=== PATIENT | female | born 1935 | race Caucasian/White ===

== ENCOUNTER 2017-08-16 20:46 | Emergency (ER) | payer OTHER ==
[~2017-08-16] VITALS: Ht 165.1 cm; Wt 81.6 kg
--- OUTSIDE RECORDS SUMMARY | 2017-08-16 20:49 | XMS REPORT | Clinical Summary ---
Author Author [facility] Address Unknown Phone Unavailable Care Team Providers [employer] Principal Name Role Phone PCP Unavailable Allergies No Known Allergies Current Medications Prescription Sig. Disp. Refills Start End Date Status Date apixaban (ELIQUIS) 5 mg Take 1 tablet (5 mg 0 03/31/20 Active Tab tablet total) by mouth 2 (two) 17 times daily. levothyroxine (SYNTHROID, Take 1 tablet (125 mcg 30 tablet 0 04/01/20 04/01/20 Active LEVOTHROID) 125 MCG total) by mouth Every 17 18 tablet morning on an empty stomach. losartan (COZAAR) 25 MG Take 1 tablet (25 mg 0 04/01/20 04/01/20 Active tablet total) by mouth daily. 17 18 sertraline (ZOLOFT) 100 Take 1 tablet (100 mg 30 tablet 0 04/01/20 04/01/20 Active MG tablet total) by mouth daily. 17 18 amiodarone (PACERONE) 200 Take 1 tablet (200 mg 0 04/01/20 04/01/20 Active MG tablet total) by mouth daily. 17 18 metoprolol (TOPROL-XL) 50 Take 1 tablet (50 mg 180 tablet 3 03/31/20 03/31/20 Active MG 24 hr tablet total) by mouth 2 (two) 17 18 times daily. metoprolol (TOPROL-XL) 50 Take 1 tablet (50 mg 0 03/31/20 03/31/20 Discontin MG 24 hr tablet total) by mouth 2 (two) 17 17 ued times daily. amiodarone (PACERONE) 100 Take 1 tablet (100 mg 0 03/31/20 03/31/20 Discontin MG tablet total) by mouth every 17 17 ued other day. Active Problems Problem Noted Date Pacemaker 03/28/2017 A-fib (HCC) 03/28/2017 Encounters Date Type Specialty Care Team Description 05/11/2017 Hospital Erick Landers MD Atrial fibrillation, Encounter unspecified type (HCC) 05/11/2017 Outside Orders Erick Landers MD Atrial fibrillation, unspecified type (HCC) (Primary Dx) 03/29/2017 Anesthesia Santos Linder AA Event 03/29/2017 Procedure Pass 03/29/2017 Surgery Erick Landers MD PACEMAKER GEN & LEADS - INSERTION W/ MAC ANESTHESIA (SING/DUAL/MULT) 03/28/2017 [facility] Marti Zimmerman Pacemaker (Primary - Encounter MD Maru Dx);Atrial fibrillation, 03/31/2017 unspecified type (HCC) 03/28/2017 Orders Only Internal Medicine Marti Zimmerman MD 11/09/2016 [facility] Erick Landers MD Paroxysmal Encounter supraventricular tachycardia (HCC) 11/08/2016 Outside Orders Central Scheduling Erick Landers MD Paroxysmal supraventricular tachycardia (HCC) (Primary Dx) after 08/15/2016 Social History Tobacco Use Types Packs/Day Years Used Date Never Smoker Alcohol Use Drinks/Week oz/Week Comments No Sex Assigned at Date Recorded Not on file Last Filed Vital Signs Vital Sign Reading Time Taken Blood Pressure 135/76 03/31/2017 7:00 AM [employer] Pulse 70 03/31/2017 7:00 AM [employer] Temperature 36.6 C (97.9 F) 03/31/2017 7:00 AM [employer] Respiratory Rate 18 03/31/2017 7:00 AM [employer] Oxygen Saturation 91% 03/31/2017 7:00 AM [employer] Inhaled Oxygen - - Concentration Weight 82.6 kg (182 lb 1.6 oz) 03/31/2017 7:00 AM [employer] Height 167.6 cm (5' 6") 03/28/2017 3:00 PM [employer] Body Mass Index 29.39 03/31/2017 7:00 AM [employer] Plan of Treatment Not on file Implants Implanted Type Area Customer Support Agent Device Expiration Model / Identifier Date Serial / Lot Lead Pacemkr Capsur Novus [id number] Pacemaker N/A: Heart [employer]:CARD [id number] / [id number] - [id number] Lead RHY:DISEASE MGT / Implanted: Qty: 1 on 03/29/2017 by Erick Landers MD Lead Pacemkr Capsur Novus 58cm Pacemaker Heart [employer]:CARD 2018 [id number] / [id number] - [id number] Lead RHY:DISEASE MGT [id number] Implanted: Qty: 1 on 03/29/2017 by / Erick Landers MD Pacemaker Ipg Advisa [id number] - Pacemakers N/A: Chest [employer]:CARD [id number] / [id number] RHY:DISEASE MGT [id number] Implanted: Qty: 1 on 03/29/2017 by / Erick Landers MD Procedures Procedure Name Priority Date/Time Associated Diagnosis Comments PACEMAKER GEN & LEADS - 03/29/2017 Chest pain INSERTION W/ MAC 6:09 PM [employer] ANESTHESIA (SING/DUAL/MULT) after 08/15/2016 Results * ARRYTHMIA IMPLANT REPORT - SCAN (07/06/2017 1:50 PM) Only the most recent of 3 results within the time period is included. * XR Chest 2 Views (05/11/2017 4:20 PM) Specimen Performing Laboratory [facility] Narrative FINAL REPORT TECHNIQUE: Frontal and lateral views of the chest. INDICATION: 82-year-old woman with pacemaker implant and atrial fibrillation. COMPARISON: Chest radiograph 03/30/2017. FINDINGS: LINES/TUBES: Unchanged implanted cardiac device in the soft tissues of the anterior left chest with intact leads. Unchanged event recorder also in the soft tissues of the anterior left chest. LUNGS: Streaky atelectasis in the right lower lung zone. The lungs are otherwise well inflated and clear. PLEURA: No pleural effusion or pneumothorax. HEART AND MEDIASTINUM: The cardiomediastinal silhouette is mildly enlarged. Ectatic/tortuous thoracic aorta. SOFT TISSUES AND BONES: Degenerative changes of the visualized spine. 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 IMPRESSION: No acute cardiopulmonary abnormalities. Signed: Audrey Garnica MD Report Verified Date/Time:05/11/2017 16:36:59 Reading Location: [address] Radiology Reading Room Procedure Note Interface, External Ris In - 05/11/2017 4:39 PM [employer] FINAL REPORT TECHNIQUE: Frontal and lateral views of the chest. INDICATION: 82-year-old woman with pacemaker implant and atrial fibrillation. COMPARISON: Chest radiograph 03/30/2017. FINDINGS: LINES/TUBES: Unchanged implanted cardiac device in the soft tissues of the anterior left chest with intact leads. Unchanged event recorder also in the soft tissues of the anterior left chest. LUNGS: Streaky atelectasis in the right lower lung zone. The lungs are otherwise well inflated and clear. PLEURA: No pleural effusion or pneumothorax. HEART AND MEDIASTINUM: The cardiomediastinal silhouette is mildly enlarged. Ectatic/tortuous thoracic aorta. SOFT TISSUES AND BONES: Degenerative changes of the visualized spine. 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 IMPRESSION: No acute cardiopulmonary abnormalities. Signed: Audrey Garnica MD Report Verified Date/Time: 05/11/2017 16:36:59 Reading Location: [address] Radiology Reading Room * RHYTHM STRIP - SCAN (04/11/2017 12:50 PM) Only the most recent of 2 results within the time period is included. * CARDIAC CATH REPORT - SCAN (03/31/2017 8:10 PM) * ECHOCARDIOGRAM REPORT - SCAN (03/31/2017 7:20 AM) * XR chest 1 view portable / bedside (03/30/2017 10:40 PM) Specimen Performing Laboratory [facility] Narrative FINAL REPORT History: Pacemaker placement. Comparison: None. Findings: A single view of the chest is submitted. The patient is rotated to the right. A left subclavian, dual-lead pacemaker is in place. The leads terminate over the expected positions of the right atrium and right ventricle without associated pneumothorax or hematoma. The cardiac silhouette is within normal limits for size. There is no focal consolidation, large pleural effusion or evidence of overt pulmonary edema. An implanted electronic device overlies the left lower chest. There is no acute bony abnormality. Signed: Xavier Miranda MD Report Verified Date/Time:03/30/2017 22:44:16 Reading Location: [address] [place] Reading Room Procedure Note Interface, External Ris In - 03/30/2017 10:46 PM [employer] FINAL REPORT History: Pacemaker placement. Comparison: None. Findings: A single view of the chest is submitted. The patient is rotated to the right. A left subclavian, dual-lead pacemaker is in place. The leads terminate over the expected positions of the right atrium and right ventricle without associated pneumothorax or hematoma. The cardiac silhouette is within normal limits for size. There is no focal consolidation, large pleural effusion or evidence of overt pulmonary edema. An implanted electronic device overlies the left lower chest. There is no acute bony abnormality. Signed: Xavier Miranda MD Report Verified Date/Time: 03/30/2017 22:44:16 Reading Location: [address] Reading Room * ECG 12 lead (03/30/2017 3:44 PM) Specimen Performing Laboratory [email or web address] Narrative Ventricular Rate 92 BPM Atrial Rate 416 BPM QRS Duration 76 ms Q-T Interval 388 ms QTC Calculation(Bazett) 479 ms R [place] 49 degrees T [place] 224 degrees Atypical flutter/fibrillation with variable AV block with an occasional paced ventricular beat. LVH with repolarization abnormality Abnormal ECG No previous ECGs available Confirmed by Chapis WILCOX MICHAEL ([id number]) on 03/31/2017 9:37:12 AM Procedure Note Interface, External Ris In - 03/31/2017 9:37 AM [employer] Ventricular Rate 92 BPM Atrial Rate 416 BPM QRS Duration 76 ms Q-T Interval 388 ms QTC Calculation(Bazett) 479 ms R [place] 49 degrees T [place] 224 degrees Atypical flutter/fibrillation with variable AV block with an occasional paced ventricular beat. LVH with repolarization abnormality Abnormal ECG No previous ECGs available Confirmed by Chapis WILCOX MICHAEL ([id number]) on 03/31/2017 9:37:12 AM * Transesophageal echo (03/30/2017 3:37 PM) Component Value Ref Range Ejection Fraction Specimen Performing Laboratory [facility] ECHO [facility]ART[facility] MKCKESSON CPACS Narrative Transesophageal Echocardiography Report (BETSY) Demographics Patient Name Mark VILLEDA of Study 03/30/2017 SHWETA [id number] Female Visit Number [id number] Unknown [id number] Room Number 1450 Number Date of Birth1935Referring Physician Anshul Suarez MD Age82 year(s)Physical Medicine Physician Ida Lombardo Interpreting Olimpia Turner Physician Fellow EDDIE Schumacher Procedure Type of Study BETSY procedure:TRANSESOPHAGEAL ECHO (Routine) Indications:Sustained or non sustained Afib, SVT or VT. Clinical History AFIB, HTN, Thyroid Disease, Hypothyroidism, PPM Height: 66 inches Weight: 82.1 kg (181 lbs) BSA: 1.92 m^2 BMI: 29.21 kg/m^2 HR: 83 bpm BP: 177/88 mmHg BETSY Performed By: the attending and the fellow Procedure Medications - Fentanyl 50 mcg. - Midazolam 2 mg. Signature Findings Rhythm/BPAtrial fibrillation with rapid ventricular response. Left Ventricle Normal left ventricular chamber size. Normal wall thickness. Normal overall left ventricular systolic function. No apparent segmental wall motion abnormalities. Left AtriumLA is enlarged but severity assessment is unreliable due to know BETSY sector size limitation. LA appendage spontaneous echo contrast is mild . LA appendage thrombus is not present . LA appendage velocities are normal range (>40 cm/s) . Right VentricleThe right ventricular chamber size and systolic function are within normal limits. Right Atrium RA size is mildly dilated. RA pacing wire is visualized. Atrial SeptumIV saline contrast injection was negative for a PFO (patent foramen ovale) at rest . Aortic Valve Mild AoV cusp calcification. Mild AoV cusp thickening. AoV cusp mobility is normal . No evidence of aortic regurgitation. Mitral Valve Mild MV leaflet thickening. Trace mitral regurgitation. Tricuspid ValveTV structure is normal. Mild tricuspid regurgitation. Estimated peak systolic PA pressure is 45-50 mmHg + RA pressure. Pulmonic Valve Normal PV structure and function by limited views and Doppler. AortaGrade 2 plaque (extensive intimal thickening) in the descending thoracic aorta . PericardiumA small anterior pericardial effusion is present . IVC/SVC/PA/PV/PleuralThe pulmonary veins appear normal. Procedure Note Interface, External Ris In - 03/31/2017 6:53 AM [employer] Transesophageal Echocardiography Report (BETSY) Demographics Patient Name SELIN VILLEDA Date of Study 03/30/2017 SHWETA Gender Female Visit Number [id number] Race Unknown Room Number 1450 Number Date of 1935 Referring Physician Anshul Suarez MD Age 82 year(s) Physical Medicine Physician Ida Lombardo Interpreting Olimpia Turner, Physician MD Fellow EDDIE Schumacher Procedure Type of Study BETSY procedure:TRANSESOPHAGEAL ECHO (Routine) Indications:Sustained or non sustained Afib, SVT or VT. Clinical History AFIB, HTN, Thyroid Disease, Hypothyroidism, PPM Height: 66 inches Weight: 82.1 kg (181 lbs) BSA: 1.92 m^2 BMI: 29.21 kg/m^2 HR: 83 bpm BP: 177/88 mmHg BETSY Performed By: the attending and the fellow Procedure Medications - Fentanyl 50 mcg. - Midazolam 2 mg. Signature Findings Rhythm/BP Atrial fibrillation with rapid ventricular response. Left Ventricle Normal left ventricular chamber size. Normal wall thickness. Normal overall left ventricular systolic function. No apparent segmental wall motion abnormalities. Left Atrium LA is enlarged but severity assessment is unreliable due to know BETSY sector size limitation. LA appendage spontaneous echo contrast is mild . LA appendage thrombus is not present . LA appendage velocities are normal range (>40 cm/s) . Right Ventricle The right ventricular chamber size and systolic function are within normal limits. Right Atrium RA size is mildly dilated. RA pacing wire is visualized. Atrial Septum IV saline contrast injection was negative for a PFO (patent foramen ovale) at rest . Aortic Valve Mild AoV cusp calcification. Mild AoV cusp thickening. AoV cusp mobility is normal . No evidence of aortic regurgitation. Mitral Valve Mild MV leaflet thickening. Trace mitral regurgitation. Tricuspid Valve TV structure is normal. Mild tricuspid regurgitation. Estimated peak systolic PA pressure is 45-50 mmHg + RA pressure. Pulmonic Valve Normal PV structure and function by limited views and Doppler. Aorta Grade 2 plaque (extensive intimal thickening) in the descending thoracic aorta . Pericardium A small anterior pericardial effusion is present . IVC/SVC/PA/PV/Pleural The pulmonary veins appear normal. * Magnesium (03/30/2017 3:46 AM) Only the most recent of 2 results within the time period is included. Component Value Ref Range Magnesium 1.8 1.6 - 2.6 mg/dL Specimen Performing Laboratory Blood [address] [address] Narrative Add magnesium to am draw from this morning * Basic metabolic panel (03/30/2017 3:46 AM) Only the most recent of 3 results within the time period is included. Component Value Ref Range Sodium 139 136 - 145 meq/L Potassium 3.6 3.5 - 5.1 meq/L Chloride 108 (H) 98 - 107 meq/L CO2 25 22 - 29 meq/L BUN 13 7 - 21 mg/dL Creatinine 1.14 0.57 - 1.25 mg/dL Glucose 120 (H) 70 - 105 mg/dL Calcium 8.4 8.4 - 10.2 mg/dL EGFR 46Comment: ESTIMATED GFR IS NOT ACCURATE mL/min/1.73 sq m CREATININE CLEARANCE IN PREDICTING GLOMERULAR FILTRATION RATE. ESTIMATED GFR IS NOT APPLICABLE FOR DIALYSIS PATIENTS. Specimen Performing Laboratory Blood [address] [address] * CBC with platelet count + automated diff (03/29/2017 6:10 AM) Only the most recent of 2 results within the time period is included. Component Value Ref Range WBC 8.6 3.5 - 10.5 K/ L RBC 4.81 3.93 - 5.22 M/ L Hemoglobin 13.6 11.2 - 15.7 GM/DL Hematocrit 42.2 34.1 - 44.9 % MCV 87.7 79.4 - 94.8 fL MCH 28.3 25.6 - 32.2 pg MCHC 32.2 32.2 - 35.5 GM/DL RDW 13.1 11.7 - 14.4 % Platelets 184 150 - 450 K/CU MM MPV 12.1 9.4 - 12.3 fL nRBC 0 0 - 0 /100 WBC % Neutros 50 % % Lymphs 38 % % Monos 8 % % Eos 3 % % Baso 1 % # Neutros 4.27 1.56 - 6.13 K/ L # Lymphs 3.21 1.18 - 3.74 K/ L # Monos 0.72 (H) 0.24 - 0.36 K/ L # Eos 0.26 0.04 - 0.36 K/ L # Baso 0.06 0.01 - 0.08 K/ L Immature 0 0 - 1 % Granulocytes-Relative Specimen Performing Laboratory Blood - Arm, [address] [address] * aPTT (03/29/2017 6:10 AM) Only the most recent of 3 results within the time period is included. Component Value Ref Range PTT 69.1 (H) 22.5 - 36.0 seconds Specimen Performing Laboratory Blood - [place], [address] [address] * CBC with platelet count + automated diff (03/29/2017 6:10 AM) Only the most recent of 2 results within the time period is included. Specimen Performing Laboratory Blood Narrative The following orders were created for panel order CBC with platelet count + automated diff. Procedure Abnormality Status --------- - ------ CBC with platelet count ...[[id number]]AbnormalFinal result Please view results for these tests on the individual orders. * TSH/Free T4 If Indicated (03/28/2017 3:50 PM) Component Value Ref Range TSH 2.43 0.35 - 4.94 uIU/mL Specimen Performing Laboratory Blood - Arm, [address] [address] * Prothrombin time/INR (03/28/2017 3:50 PM) Component Value Ref Range Protime 15.3 (H) 11.7 - 14.7 seconds INR 1.2 <=5.9 Specimen Performing Laboratory Blood - Arm, [address] [address] Narrative RECOMMENDED COUMADIN/WARFARIN INR THERAPY RANGES STANDARD DOSE: 2.0 - 3.0 Includes: PROPHYLAXIS for venous thrombosis, systemic embolization; TREATMENT for venous thrombosis and/or pulmonary embolus. HIGH RISK: Target INR is 2.5-3.5 for patients with mechanical heart valves. Prior to initiating heparin * Hepatic function panel (03/28/2017 3:50 PM) Component Value Ref Range Protein, Total 8.5 (H) 6.0 - 8.3 gm/dL Albumin 4.2 3.5 - 5.0 g/dL Total Bilirubin 0.4 0.2 - 1.2 mg/dL Bilirubin, Direct 0.2 0.1 - 0.5 mg/dL Alkaline Phosphatase 95 40 - 150 U/L AST 18 5 - 34 U/L ALT 10 6 - 55 U/L Specimen Performing Laboratory Blood - [facility], [address] [address] Narrative Fasting lipid panel * Lipid panel (03/28/2017 3:50 PM) Component Value Ref Range Triglycerides 174 mg/dL Cholesterol 292 mg/dL HDL 44 mg/dL LDL Calculated 213 mg/dL Specimen Performing Laboratory Blood - [facility], [address] [address] Narrative Triglyceride Reference Range: Low Risk <150 [id number] High Risk 200-499 Very High Risk>=500 Cholesterol Reference Range: Low Risk <200 [id number] High Risk>240 HDL Cholesterol Reference Range: Low Risk >=60 High Risk <40 LDL Cholesterol Reference Range: Optimal<100 Near [id number] Very High >=190 Fasting lipid panel after 08/15/2016
--- OUTSIDE RECORDS SUMMARY | 2017-08-16 20:50 | XMS REPORT ---
Author Author [facility] Address Unknown Phone Unavailable Care Team Providers Care Garbage Collector Supervisor Name Role Phone AFIA HOLLIS Unavailable Unavailable Problems This patient has no known problems. Allergies, Adverse Reactions, Alerts This patient has no known allergies or adverse reactions. Medications This patient has no known medications. 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 IMPRESSION:No acute cardiopulmonary abnormalities. Signed: Audrey Garnica MDReport Verified Date/ Time: 05/11/2017 16:36:59 Reading Location: [address] Radiology Reading Room , CHEST, 1 VIEW, NON DEPT 2017-03-30 22:44:00 Reason for exam:->s/p PPM implantShould this be performed at the bedside?->Yes FINAL REPORT History: Pacemaker placement. Comparison: None. [...] There is no acute bony abnormality. Signed: Saulo Miranda MDReport Verified Date/Time: 03/30/2017 22:44:16 Reading Location: [address] Reading Room Electronically signed by: SAULO MIRANDA M.D. on 10:44 PM MAGNESIUM 2017-03-30 11:11:00 MAGNESIUM (BEAKER) (test akdj=143) 1.8 mg/dL 1.6-2.6 Add magnesium to am draw from this morningBASIC METABOLIC [id number] 04:29: 00* Test Item Value Reference Range Comments SODIUM (BEAKER) (test atmb=309) 139 meq/L 136-145 POTASSIUM (BEAKER) (test cebi=137) 3.6 meq/L 3.5-5.1 CHLORIDE (BEAKER) (test cpzl=593) 108 meq/L 98-107 CO2 (BEAKER) (test tact=628) 25 meq/L 22-29 BLOOD UREA NITROGEN (BEAKER) (test fznh=183) 13 mg/dL 7-21 CREATININE (BEAKER) (test gnha=812) 1.14 mg/dL 0.57-1.25 GLUCOSE RANDOM (BEAKER) (test upoc=203) 120 mg/dL 70-105 CALCIUM (BEAKER) (test tlbl=250) 8.4 mg/dL 8.4-10.2 EGFR (BEAKER) (test vocg=2501) 46 mL/min/1.73 sq m ESTIMATED GFR IS NOT ACCURATE CREATININE CLEARANCE IN PREDICTING GLOMERULAR FILTRATION RATE. ESTIMATED GFR IS NOT APPLICABLE FOR DIALYSIS PATIENTS. BASIC METABOLIC [id number] 09:20:00* Test Item Value Reference Range Comments SODIUM (BEAKER) (test fycu=550) 140 meq/L 136-145 POTASSIUM (BEAKER) (test tvdf=055) 3.8 meq/L 3.5-5.1 CHLORIDE (BEAKER) (test wdmo=478) 108 meq/L 98-107 CO2 (BEAKER) (test gjui=114) 22 meq/L 22-29 BLOOD UREA NITROGEN (BEAKER) (test kzbe=835) 11 mg/dL 7-21 CREATININE (BEAKER) (test uxwe=694) 1.09 mg/dL 0.57-1.25 GLUCOSE RANDOM (BEAKER) (test nuck=093) 96 mg/dL 70-105 CALCIUM (BEAKER) (test cnrv=422) 8.9 mg/dL 8.4-10.2 EGFR (BEAKER) (test qkqh=0155) 48 mL/min/1.73 sq m ESTIMATED GFR IS NOT ACCURATE CREATININE CLEARANCE IN PREDICTING GLOMERULAR FILTRATION RATE. ESTIMATED GFR IS NOT APPLICABLE FOR DIALYSIS PATIENTS. [id number] 07:30:00* Test Item Value Reference Range Comments PARTIAL THROMBOPLASTIN TIME (BEAKER) (test jrka=300) 69.1 seconds 22.5-36.0 CBC W/PLT COUNT & AUTO [id number] 07:12:00* Test Item Value Reference Range Comments WHITE BLOOD CELL COUNT (BEAKER) (test odbf=902) 8.6 K/ L 3.5-10.5 RED BLOOD CELL COUNT (BEAKER) (test abmu=824) 4.81 M/ L 3.93-5.22 HEMOGLOBIN (BEAKER) (test fxxf=948) 13.6 GM/DL 11.2-15.7 HEMATOCRIT (BEAKER) (test mwwn=223) 42.2 % 34.1-44.9 MEAN CORPUSCULAR VOLUME (BEAKER) (test roml=334) 87.7 fL 79.4-94.8 MEAN CORPUSCULAR HEMOGLOBIN (BEAKER) (test vbck=765) 28.3 pg 25.6-32.2 MEAN CORPUSCULAR HEMOGLOBIN CONC (BEAKER) (test gdfk=245) 32.2 GM/DL 32.2- 35.5 RED CELL DISTRIBUTION WIDTH (BEAKER) (test dtjo=821) 13.1 % 11.7-14.4 PLATELET COUNT (BEAKER) (test xdel=160) 184 K/CU MM 150-450 MEAN PLATELET VOLUME (BEAKER) (test udxt=968) 12.1 fL 9.4-12.3 NUCLEATED RED BLOOD CELLS (BEAKER) (test rdnn=010) 0 /100 WBC 0-0 NEUTROPHILS RELATIVE PERCENT (BEAKER) (test vsyb=440) 50 % LYMPHOCYTES RELATIVE PERCENT (BEAKER) (test drgb=409) 38 % MONOCYTES RELATIVE PERCENT (BEAKER) (test lhit=732) 8 % EOSINOPHILS RELATIVE PERCENT (BEAKER) (test eamj=422) 3 % BASOPHILS RELATIVE PERCENT (BEAKER) (test lrmx=493) 1 % NEUTROPHILS ABSOLUTE COUNT (BEAKER) (test ypwn=321) 4.27 K/ L 1.56-6.13 LYMPHOCYTES ABSOLUTE COUNT (BEAKER) (test zfyx=069) 3.21 K/ L 1.18-3.74 MONOCYTES ABSOLUTE COUNT (BEAKER) (test gfyu=996) 0.72 K/ L 0.24-0.36 EOSINOPHILS ABSOLUTE COUNT (BEAKER) (test heha=609) 0.26 K/ L 0.04-0.36 BASOPHILS ABSOLUTE COUNT (BEAKER) (test vzkv=954) 0.06 K/ L 0.01-0.08 IMMATURE GRANULOCYTES-RELATIVE PERCENT (BEAKER) (test ytot=2790) 0 % 0-1 [id number] 23:46:00* Test Item Value Reference Range Comments PARTIAL THROMBOPLASTIN TIME (BEAKER) (test pulp=907) 44.9 seconds 22.5-36.0 TSH/FREE T4 IF [id number] 16:45:00* Test Item Value Reference Range Comments THYROID STIMULATING HORMONE (BEAKER) (test azwq=327) 2.43 uIU/mL 0.35-4.94 [id number] 16:27:00* Test Item Value Reference Range Comments MAGNESIUM (BEAKER) (test zyto=177) 2.0 mg/dL 1.6-2.6 Fasting lipid panelBASIC METABOLIC [id number] 16:27:00* Test Item Value Reference Range Comments SODIUM (BEAKER) (test gaiv=993) 141 meq/L 136-145 POTASSIUM (BEAKER) (test cfqf=730) 3.6 meq/L 3.5-5.1 CHLORIDE (BEAKER) (test xqwk=967) 106 meq/L 98-107 CO2 (BEAKER) (test zwse=892) 25 meq/L 22-29 BLOOD UREA NITROGEN (BEAKER) (test aqhu=201) 10 mg/dL 7-21 CREATININE (BEAKER) (test nxni=688) 1.19 mg/dL 0.57-1.25 GLUCOSE RANDOM (BEAKER) (test oovt=829) 137 mg/dL 70-105 CALCIUM (BEAKER) (test fioq=333) 9.2 mg/dL 8.4-10.2 EGFR (BEAKER) (test fumo=8083) 44 mL/min/1.73 sq m ESTIMATED GFR IS NOT ACCURATE CREATININE CLEARANCE IN PREDICTING GLOMERULAR FILTRATION RATE. ESTIMATED GFR IS NOT APPLICABLE FOR DIALYSIS PATIENTS. Fasting lipid panelLIPID [id number] 16:27:00* Test Item Value Reference Range Comments TRIGLYCERIDES (BEAKER) (test lyms=325) 174 mg/dL CHOLESTEROL (BEAKER) (test jwjj=438) 292 mg/dL HDL CHOLESTEROL (BEAKER) (test rpiz=108) 44 mg/dL LDL CHOLESTEROL CALCULATED (BEAKER) (test iwyh=976) 213 mg/dL Triglyceride Reference Range: Low Risk <150 Borderline 150-199 High Risk 200-499 Very High Risk >=500Cholesterol Reference Range: Low Risk <200 Borderline 200-239 High Risk >240HDL Cholesterol Reference Range: Low Risk >=60 High Risk <40LDL Cholesterol Reference Range: Optimal <100 Near Optimal 100-129 Borderline 130-159 High 160-189 Very High >=190 Fasting lipid panelHEPATIC FUNCTION [id number] 16:27:00* Test Item Value Reference Range Comments TOTAL PROTEIN (BEAKER) (test ddsp=539) 8.5 gm/dL 6.0-8.3 ALBUMIN (BEAKER) (test rmmk=7425) 4.2 g/dL 3.5-5.0 BILIRUBIN TOTAL (BEAKER) (test kpat=726) 0.4 mg/dL 0.2-1.2 BILIRUBIN DIRECT (BEAKER) (test nvgo=774) 0.2 mg/dL 0.1-0.5 ALKALINE PHOSPHATASE (BEAKER) (test kmdv=902) 95 U/L 40-150 AST (SGOT) (BEAKER) (test jgqn=707) 18 U/L 5-34 ALT (SGPT) (BEAKER) (test zuao=793) 10 U/L 6-55 Fasting lipid [id number] 16:19:00* Test Item Value Reference Range Comments PARTIAL THROMBOPLASTIN TIME (BEAKER) (test nbgp=956) 33.7 seconds 22.5-36.0 Prior to initiating heparinPROTHROMBIN TIME/[id number] 16:18:00* Test Item Value Reference Range Comments PROTIME (BEAKER) (test sozv=770) 15.3 seconds 11.7-14.7 INR (BEAKER) (test ykgp=923) 1.2 <=5.9 RECOMMENDED COUMADIN/WARFARIN INR THERAPY RANGESSTANDARD DOSE: 2.0 - 3.0 Includes: PROPHYLAXIS for venous thrombosis, systemic embolization; TREATMENT for venous thrombosis and/or pulmonary embolus.HIGH RISK: Target INR is 2.5-3.5 for patients with mechanical heart valves.Prior to initiating heparinCBC W/PLT COUNT & AUTO [id number] 16:09:00* Test Item Value Reference Range Comments WHITE BLOOD CELL COUNT (BEAKER) (test ggcu=940) 8.0 K/ L 3.5-10.5 RED BLOOD CELL COUNT (BEAKER) (test vtcr=939) 5.22 M/ L 3.93-5.22 HEMOGLOBIN (BEAKER) (test hyif=035) 14.6 GM/DL 11.2-15.7 HEMATOCRIT (BEAKER) (test bzrl=353) 46.2 % 34.1-44.9 MEAN CORPUSCULAR VOLUME (BEAKER) (test qmvz=735) 88.5 fL 79.4-94.8 MEAN CORPUSCULAR HEMOGLOBIN (BEAKER) (test ecwb=284) 28.0 pg 25.6-32.2 MEAN CORPUSCULAR HEMOGLOBIN CONC (BEAKER) (test djcw=700) 31.6 GM/DL 32.2- 35.5 RED CELL DISTRIBUTION WIDTH (BEAKER) (test oaym=991) 13.0 % 11.7-14.4 PLATELET COUNT (BEAKER) (test qoms=867) 205 K/CU MM 150-450 MEAN PLATELET VOLUME (BEAKER) (test tjjw=460) 11.4 fL 9.4-12.3 NUCLEATED RED BLOOD CELLS (BEAKER) (test gvsj=827) 0 /100 WBC 0-0 NEUTROPHILS RELATIVE PERCENT (BEAKER) (test kfml=963) 65 % LYMPHOCYTES RELATIVE PERCENT (BEAKER) (test vfxq=697) 24 % MONOCYTES RELATIVE PERCENT (BEAKER) (test naxy=425) 7 % EOSINOPHILS RELATIVE PERCENT (BEAKER) (test dbyg=165) 3 % BASOPHILS RELATIVE PERCENT (BEAKER) (test puwr=339) 1 % NEUTROPHILS ABSOLUTE COUNT (BEAKER) (test tdmb=801) 5.21 K/ L 1.56-6.13 LYMPHOCYTES ABSOLUTE COUNT (BEAKER) (test zozi=414) 1.91 K/ L 1.18-3.74 MONOCYTES ABSOLUTE COUNT (BEAKER) (test zfjr=155) 0.59 K/ L 0.24-0.36 EOSINOPHILS ABSOLUTE COUNT (BEAKER) (test vqfw=489) 0.20 K/ L 0.04-0.36 BASOPHILS ABSOLUTE COUNT (BEAKER) (test gepk=195) 0.04 K/ L 0.01-0.08 IMMATURE GRANULOCYTES-RELATIVE PERCENT (BEAKER) (test rcjg=7890) 0 % 0-1
[2017-08-16 21:18] LABS: BASOPHILS % 0.6 % (0.0-1.0); EOSINOPHILS # (AUTO) 0.2 (0.0-0.4); EOSINOPHILS % 2.3 % (0.0-6.0); HEMATOCRIT 40.8 % (34.2-44.1); HEMOGLOBIN 13.5 g/dL (12.0-16.0); LYMPHOCYTES % 29.8 % (18.0-39.1); MEAN CORPUSCULAR HEMOGLOBIN 28.2 pg (28-32); MEAN CORPUSCULAR HGB CONC 33.1 g/dL (31-35); MEAN CORPUSCULAR VOLUME 85.4 fL (81-99); MONOCYTES # (AUTO) 0.6 (0.2-0.8); MONOCYTES % 8.8 % (4.4-11.3); NEUTROPHILS # (AUTO) 3.9 (2.1-6.9); NEUTROPHILS % 58.3 % (38.7-80.0); PLATELET COUNT 197 x10e3/uL (140-360); RED BLOOD COUNT 4.78 x10e6/uL (3.6-5.1); RED CELL DISTRIBUTION WIDTH 13.3 % (11.7-14.4)
[2017-08-16 21:25] LABS: INR 1.2; PROTHROMBIN TIME 14.3 seconds (11.9-14.5)
[2017-08-16 21:26] LABS: PARTIAL THROMBOPLASTIN TIME 28.7 seconds (23.8-35.5)
[2017-08-16] MEDS ORDERED: CLONIDINE HCL 0.1 MG TAB PO ONE (21:30)
[2017-08-16 21:35] LABS: ALBUMIN 3.3 g/dL (3.5-5.0); ALBUMIN/GLOBULIN RATIO 0.8 (0.8-2.0); ANION GAP 12.8 mmol/L (8-16); CALCIUM 8.8 mg/dL (8.4-10.2); CREATININE, SERUM 1.14 mg/dL (0.57-1.11); POTASSIUM 3.8 mmol/L (3.5-5.1)
[2017-08-16 21:41] LABS: CREATINE KINASE MB 1.2 ng/mL (0-5.0)
[2017-08-16] MEDS ORDERED: SERTRALINE HCL50 MG PO (21:52)
[2017-08-16] MEDS ORDERED: ELIQUIS PO (21:52)
[2017-08-16] MEDS ORDERED: LOSARTAN POTAS100 MG PO (21:52)
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
== END 2017-08-17 00:09 | disposition home or self-care (01) ==
LOC: ER 20:46
DX: I10 Essential (primary) hypertension (principal); M54.2 Cervicalgia; V43.52XA Car driver injured in collision with other type car in traffic accident, initial encounter; Y92.410 Unspecified street and highway as the place of occurrence of the external cause
CPT/HCPCS: 36415; 70450; 71045; 72125; 80053; 82550; 82553; 84484; 85025; 85610; 85730; 93005; 99284

== ENCOUNTER 2017-09-20 04:04 | Observation (INO) | payer MEDICARE ==
[~2017-09-20] VITALS: Ht 170.2 cm; Wt 79.8 kg
[~2017-09-20 04:04] MED LIST: ELIQUIS PO; LOSARTAN POTAS100 MG PO; SERTRALINE HCL50 MG PO
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
[2017-09-20] MEDS ORDERED: NITROGLYCERIN 2% OINT 1 GM PKT TOP ONE (04:45)
[2017-09-20 04:56] LABS: BASOPHILS % 0.4 % (0.0-1.0); EOSINOPHILS # (AUTO) 0.2 (0.0-0.4); EOSINOPHILS % 2.7 % (0.0-6.0); HEMATOCRIT 41.6 % (34.2-44.1); HEMOGLOBIN 13.7 g/dL (12.0-16.0); LYMPHOCYTES # (AUTO) 2.8 (1.0-3.2); MEAN CORPUSCULAR HEMOGLOBIN 28.3 pg (28-32); MEAN CORPUSCULAR HGB CONC 32.9 g/dL (31-35); MONOCYTES # (AUTO) 0.7 (0.2-0.8); MONOCYTES % 8.7 % (4.4-11.3); NEUTROPHILS # (AUTO) 4.4 (2.1-6.9); NEUTROPHILS % 54.1 % (38.7-80.0); PLATELET COUNT 200 x10e3/uL (140-360); RED BLOOD COUNT 4.84 x10e6/uL (3.6-5.1); RED CELL DISTRIBUTION WIDTH 13.2 % (11.7-14.4)
[2017-09-20 05:06] LABS: BILIRUBIN,URINE NEGATIVE (NEGATIVE); CLARITY,URINE CLEAR (CLEAR); COLOR,URINE YELLOW (YELLOW); KETONES,URINE NEGATIVE (NEGATIVE); LEUKOCYTE ESTERASE ,URINE TRACE (NEGATIVE); NITRITE,URINE NEGATIVE (NEGATIVE); PROTEIN,URINE DIPSTICK NEGATIVE (NEGATIVE); URINE UROBILINOGEN 0.2 mg/dL (0.2 - 1)
[2017-09-20 05:10] LABS: INR 1.11; PROTHROMBIN TIME 13.5 seconds (11.9-14.5)
[2017-09-20 05:11] LABS: PARTIAL THROMBOPLASTIN TIME 32.1 seconds (23.8-35.5)
[2017-09-20 05:12] LABS: EPITHELIAL CELLS,URINE RARE /LPF; WBC,URINE (MAN) 0-5 /HPF (0-5)
[2017-09-20 05:22] LABS: ALBUMIN 3.8 g/dL (3.5-5.0); ALBUMIN/GLOBULIN RATIO 0.9 (0.8-2.0); ANION GAP 12.5 mmol/L (8-16); CALCIUM 9.3 mg/dL (8.4-10.2); CREATININE, SERUM 1.07 mg/dL (0.57-1.11); POTASSIUM 3.5 mmol/L (3.5-5.1)
--- NOTE | 2017-09-20 05:23 | Diagnostic Imaging Report ---
EXAM: CHEST 2 VIEWS, PA and lateral INDICATION: Syncope COMPARISON: AP view of the chest August 16, 2017 FINDINGS: LINES/TUBES: Left approach dual lead cardiac device and loop recorder. LUNGS: No consolidations or edema. PLEURA: No effusions or pneumothorax. HEART AND MEDIASTINUM: Stable appearance. BONES AND SOFT TISSUES: No acute findings. Old right upper rib fractures. Chronic appearing mid thoracic spine vertebral body fracture. IMPRESSION: No acute thoracic abnormality. Signed by: Dr. Bhumi Baxter M.D. on 09/20/2017 5:19 AM
--- NOTE | 2017-09-20 05:32 | Diagnostic Imaging Report ---
Exams: Head and cervical spine CTs without IV contrast History: Syncope, fall, hypertension Comparison studies: Head and cervical spine CTs of 08/16/2017 Technique: Axial images were obtained from the brain and cervical spine. Coronal and sagittal images reconstructed from the axial data. Intravenous contrast: None Findings: Head CT: Scalp: No abnormalities. Bones: No fractures, blastic or lytic lesions. Extra-axial spaces: No masses. No fluid collections. Brain sulci: Mildly prominent. Ventricles: Moderately dilated lateral and third ventricles disproportionate to sulcal prominence may be related to degree of central greater peripheral cortical volume loss. Consider normal pressure hydrocephalus (NPH) only in the appropriate clinical setting. No acute hydrocephalus. Parenchyma: No mass, acute hemorrhage or acute cortical vascular insults. There are confluent hypodensities in the supratentorial white matter which are nonspecific but most compatible with chronic small vessel ischemic changes. Unchanged small chronic lacunar infarct at the anterior right thalamic capsular junction. Sellar/suprasellar region: No abnormalities. Craniocervical junction: The foramen magnum is patent. No Chiari one malformation. Cervical spine CT: Fractures: None. Soft tissues: No gross abnormalities. Atlantoaxial articulation: Intact. Alignment: Straightened cervical curvature. No subluxations. Cervicomedullary junction: No abnormalities. The foramen magnum is patent. Vertebrae: No infection or neoplasm. Degenerative changes: Mildly moderately degenerated disks with loss of disc height from C4 to T1 disc osteophyte complexes at C4-C5, C5-C6 and C6-C7 indent the thecal sac but do not result in significant canal stenosis. Multilevel uncovertebral and facet arthrosis result in multilevel foraminal stenosis (moderate left at C3-C4, moderate left and mild right at C4-C5, moderate bilaterally at C5-C6 and at C6-C7 and moderate left and mild right at C7-T1). Incidental findings: Atherosclerotic calcifications in the carotid siphons. IMPRESSION: Head CT: 1. No acute abnormalities or changes from the previous head CT of 08/16/2017. 2. Generalized volume loss. 3. Severe chronic microvascular ischemic changes with chronic right thalamic capsular lacunar infarct. 4. Nonspecific supratentorial ventriculomegaly may be related to volume loss. Alternatively, consider NPH in the appropriate clinical setting. Cervical spine CT: 1. No cervical spine fracture or subluxation. 2. Degenerative changes as described. 3. No changes from the previous cervical spine MRI of 08/16/2017. 4. Cannot adequately evaluate ligament, spinal cord and or vascular abnormalities on the basis of this examination. Signed by: Dr. Dion Jacobson M.D. on 09/20/2017 5:29 AM
[2017-09-20 05:42] LABS: CREATINE KINASE MB 7.3 ng/mL (0-5.0); THYROID STIMULATING HORMONE 5.682 uIU/mL (0.350-4.940)
[2017-09-20] MEDS ORDERED: FAMOTIDINE 20 MG/2 ML VIAL IV SCH (05:45)
[2017-09-20] MEDS ORDERED: NIFEDIPINE 10 MG CAP PO ONE (05:45)
--- OUTSIDE RECORDS SUMMARY | 2017-09-20 05:58 | XMS REPORT | Clinical Summary ---
Author Author [facility] Address Unknown Phone Unavailable Care Team Providers Care Machine Setter Name Role Phone PCP Unavailable Allergies No [...] - INSERTION W/ MAC ANESTHESIA (SING/DUAL/MULT) 03/28/2017 [facility] Marti Zimmerman Pacemaker (Primary - Encounter MD Maru Dx);Atrial fibrillation, 03/31/2017 unspecified type (HCC) 03/28/2017 Orders Only Internal Medicine Marti Zimmerman MD 11/09/2016 [facility] Erick Landers MD Paroxysmal Encounter supraventricular [...] Taken Blood Pressure 135/76 03/31/2017 7:00 AM VARNISHING MACHINE OPERATOR Pulse 70 03/31/2017 7:00 AM VARNISHING MACHINE OPERATOR Temperature 36.6 C (97.9 F) 03/31/2017 7:00 AM VARNISHING MACHINE OPERATOR Respiratory Rate 18 03/31/2017 7:00 AM VARNISHING MACHINE OPERATOR Oxygen Saturation 91% 03/31/2017 7:00 AM VARNISHING MACHINE OPERATOR Inhaled Oxygen - - Concentration Weight 82.6 kg (182 lb 1.6 oz) 03/31/2017 7:00 AM VARNISHING MACHINE OPERATOR Height 167.6 cm (5' 6") 03/28/2017 3:00 PM VARNISHING MACHINE OPERATOR Body Mass Index 29.39 03/31/2017 7:00 AM VARNISHING MACHINE OPERATOR Plan of Treatment Not on file Implants Implanted Type Area Front Office Assistant Device Expiration Model / Identifier Date Serial / Lot Lead Pacemkr Capsur Novus [id number] Pacemaker N/A: Heart [employer]:CARD [id number] / [id number] - [id number] Lead RHY:DISEASE MGT / Implanted: Qty: 1 on 03/29/2017 by Erick Landers MD Lead Pacemkr Capsur Novus 58cm Pacemaker Heart [employer]:CARD 2018 [id number] / [id number] - [id number] Lead RHY:DISEASE MGT [id number] Implanted: Qty: 1 on 03/29/2017 by / Erick Landers MD Pacemaker Ipg Advisa [id number] - Pacemakers N/A: Chest [employer]:CARD [id number] / [id number] RHY:DISEASE MGT [id number] Implanted: Qty: 1 on 03/29/2017 by / Erick Landers MD Procedures Procedure Name Priority Date/Time Associated Diagnosis Comments PACEMAKER GEN & LEADS - 03/29/2017 Chest pain INSERTION W/ MAC 6:09 PM VARNISHING MACHINE OPERATOR ANESTHESIA (SING/DUAL/MULT) after 09/19/2016 Results * ARRYTHMIA [...] MD Report Verified Date/Time:05/11/2017 16:36:59 Reading Location: [address] Radiology Reading Room Procedure Note Interface, External Ris In - 05/11/2017 4:39 PM VARNISHING MACHINE OPERATOR FINAL REPORT TECHNIQUE: Frontal and lateral views [...] Report Verified Date/Time: 05/11/2017 16:36:59 Reading Location: [address] Radiology Reading Room * RHYTHM STRIP [...] MD Report Verified Date/Time:03/30/2017 22:44:16 Reading Location: [address] [place] Reading Room Procedure Note Interface, External Ris In - 03/30/2017 10:46 PM VARNISHING MACHINE OPERATOR FINAL REPORT History: Pacemaker placement. Comparison: None. [...] Report Verified Date/Time: 03/30/2017 22:44:16 Reading Location: [address] Reading Room * ECG 12 lead (03/30/2017 3:44 PM) Specimen Performing Laboratory [email or web address] [email or web address] Narrative Ventricular Rate 92 BPM Atrial Rate 416 BPM QRS Duration 76 ms Q-T Interval 388 ms QTC Calculation(Bazett) 479 ms R [place] 49 degrees T [place] 224 degrees Atypical flutter/fibrillation with variable AV block with an occasional paced ventricular beat. LVH with repolarization abnormality Abnormal ECG No previous ECGs available Confirmed by Chapis WILCOX MICHAEL ([id number]) on 03/31/2017 9:37:12 AM Procedure Note Interface, External Ris In - 03/31/2017 9:37 AM VARNISHING MACHINE OPERATOR Ventricular Rate 92 BPM Atrial Rate 416 BPM QRS Duration 76 ms Q-T Interval 388 ms QTC Calculation(Bazett) 479 ms R [place] 49 degrees T [place] 224 degrees Atypical flutter/fibrillation with variable AV block with an occasional paced ventricular beat. LVH with repolarization abnormality Abnormal ECG No previous ECGs available Confirmed by Chapis WILCOX MICHAEL ([id number]) on 03/31/2017 9:37:12 AM * Transesophageal echo (03/30/2017 3:37 PM) Component Value Ref Range Ejection Fraction Specimen Performing Laboratory [facility] ECHO [facility]ART[facility] MKCKESSON CPACS Narrative Transesophageal Echocardiography Report (BETSY) Demographics Patient Name Mark VILLEDA of Study 03/30/2017 SHWETA [id number] Female Visit Number [id number] Unknown [id number] Room Number 1450 Number Date of Birth1935Referring Physician Anshul Suarez MD Age82 year(s)Notched Blade Loader Ida Lombardo Interpreting Olimpia Turner Physician Fellow [...] External Ris In - 03/31/2017 6:53 AM VARNISHING MACHINE OPERATOR Transesophageal Echocardiography Report (BETSY) Demographics Patient Name SELIN VILLEDA Date of Study 03/30/2017 SHWETA Gender Female Visit Number [id number] Race Unknown Room Number 1450 Number Date of 1935 Referring Physician Anshul Suarez MD Age 82 year(s) Notched Blade Loader Ida Lombardo Interpreting Olimpia Turner, Physician MD [...] - 2.6 mg/dL Specimen Performing Laboratory Blood [address] [address] Narrative Add magnesium to am draw from [...] FOR DIALYSIS PATIENTS. Specimen Performing Laboratory Blood [address] [address] * CBC with platelet count + automated [...] Granulocytes-Relative Specimen Performing Laboratory Blood - [place], [address] [address] * aPTT (03/29/2017 6:10 AM) Only the most recent of 3 results within the time period is included. Component Value Ref Range PTT 69.1 (H) 22.5 - 36.0 seconds Specimen Performing Laboratory Blood - [place], [address] [address] * CBC with platelet count + automated diff (03/29/2017 6:10 AM) Only the most recent of 2 results within the time period is included. Specimen Performing Laboratory Blood Narrative The following orders were created for panel order CBC with platelet count + automated diff. Procedure Abnormality Status --------- - ------ CBC with platelet count ...[[id number]]AbnormalFinal result Please view results for these tests on the individual orders. * TSH/Free T4 If Indicated (03/28/2017 3:50 PM) Component Value Ref Range TSH 2.43 0.35 - 4.94 uIU/mL Specimen Performing Laboratory Blood - [place], [address] [address] * Prothrombin time/INR (03/28/2017 3:50 PM) Component Value Ref Range Protime 15.3 (H) 11.7 - 14.7 seconds INR 1.2 <=5.9 Specimen Performing Laboratory Blood - [place], [address] [address] Narrative RECOMMENDED COUMADIN/WARFARIN INR THERAPY RANGES STANDARD [...] U/L Specimen Performing Laboratory Blood - [place], [address] [address] Narrative Fasting lipid panel * Lipid panel (03/28/2017 3:50 PM) Component Value Ref Range Triglycerides 174 mg/dL Cholesterol 292 mg/dL HDL 44 mg/dL LDL Calculated 213 mg/dL Specimen Performing Laboratory Blood - [place], [address] [address] Narrative Triglyceride Reference Range: Low Risk <150 [id number] High Risk 200-499 Very High Risk>=500 Cholesterol Reference Range: Low Risk <200 [id number] High Risk>240 HDL Cholesterol Reference Range: Low Risk >=60 High Risk <40 LDL Cholesterol Reference Range: Optimal<100 Near [id number] [id number] Mkig635-192 Very High >=190 Fasting lipid panel after 09/19/2016
[2017-09-20] MEDS: NITROGLYCERIN 2% OINT 1 GM PKT TOP SCH ×2 (06:26→12:00)
[2017-09-20] MEDS ORDERED: FUROSEMIDE INJ 10 MG/ML 4 ML VIAL IV ONE (07:00)
[2017-09-20 08:23] VITALS: BP 148/69
[2017-09-20] MEDS ORDERED: APIXABAN 5 MG TABLET PO SCH (09:00)
[2017-09-20] MEDS ORDERED: SODIUM CHLORIDE 0.9% 1000ML 1,000 ML IV SCH (09:00)
[2017-09-20] MEDS ORDERED: SERTRALINE HCL 50 MG TAB PO SCH (09:00)
[2017-09-20] MEDS ORDERED: ASPIRIN 325 MG TAB PO SCH (09:00)
[2017-09-20] MEDS ORDERED: NON-FORMULARY MEDICATION ([Eliquis] 5 MG) PO SCH (09:00)
[2017-09-20] MEDS ORDERED: ASPIRIN 81 MG ENTERIC COATED PO SCH (09:00)
--- NOTE | 2017-09-20 09:26 | History and Physical ---
PRIMARY CARE PHYSICIAN: Dr. Webster LINER REPLACER: In the [facility]. CHIEF COMPLAINT: Passing out. HISTORY OF PRESENT ILLNESS: This is an 82-year-old woman with a history of atrial fibrillation and congestive heart failure, now passing out. The patient stated that she passed out about 4 times over the past week. She did hit her head on one occasion. She has had syncopal episodes in the past as well. She denies any dizziness or chest pain prior to the events. States that she was not out for long, but she just saw black and then passed out. Last stress test was a year ago, which she states was false positive. She had no history of seizures. PAST MEDICAL HISTORY: Congestive heart failure, type unknown, hypothyroidism, atrial fibrillation, hypertension, syncope. PAST SURGICAL HISTORY: Cholecystectomy. ALLERGIES: PER ELECTRONIC MEDICAL RECORDS. FAMILY HISTORY/SOCIAL HISTORY: Patient is single. She has 3 children. Lives alone. No alcohol, illicits or cigarettes. MEDICATIONS: Per electronic medical record. REVIEW OF SYSTEMS: Denies any dizziness or chest pain. PHYSICAL EXAMINATION VITAL SIGNS: Reviewed. Blood pressure on admission was 212/111. GENERAL: A tired-appearing woman resting in bed. HEENT: Anicteric. Pupils respond to light. No oral lesions. CARDIOVASCULAR: Normal S1 and S2. LUNGS: Moderate breath sounds. ABDOMEN: Soft, nontender and nondistended. EXTREMITIES: No edema or calf tenderness. NEUROLOGICAL: Alert and oriented times 3. Moving all extremities. SKIN: Dry. PSYCHIATRIC: Flat affect. LABS: Reviewed. MEDICATIONS: Reviewed. ASSESSMENT AND PLAN: This is an 82-year-old woman with: 1. Hypertensive emergency: Will control blood pressure. May be related to why she passed out. She states that Bystolic was recently started by her primary care doctor, but she had periods of low blood pressure and high blood pressure. 2. Syncope: Will obtain echocardiogram and cardiology consultation. Computerized tomography scan imaging is negative of the cervical spine and of the brain. 3. Atrial fibrillation: Here the patient's rate is regular. 4. Congestive heart failure: Type unknown. Follow up echocardiogram. 5. Abnormal electrocardiogram: She has T-wave inversions and signs of left ventricular hypertrophy on her electrocardiogram. Will follow up echocardiogram and follow by telemetry. 6. Acute kidney injury: GFR is 49. Will rehydrate and reassess. 7. Hypothyroidism: TSH is 5.682. Will obtain a free T4. 8. Prophylaxis: Will use Lovenox and Pepcid. 9. Disposition: Physical therapy consultation. Follow up echocardiogram and follow up cardiology recommendations. Job#: [id number] [place]
[2017-09-20] MEDS ORDERED: LOSARTAN POTASSIUM 100 MG TAB PO SCH (10:30)
[2017-09-20] MEDS ORDERED: NEBIVOLOL 10 MG TAB PO SCH (10:30)
[2017-09-20 12:16] VITALS: BP 151/83
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
[2017-09-20] MEDS ORDERED: ACETAMINOPHEN/CODEINE 300MG - 30MG TAB PO ONE (13:00)
[2017-09-20 13:52] LABS: CREATINE KINASE MB 6.2 ng/mL (0-5.0)
[2017-09-20] MEDS ORDERED: FAMOTIDINE 20 MG TAB PO SCH (16:30)
[2017-09-20] MEDS ORDERED: ENOXAPARIN SOD INJ 40 MG/0.4 ML SYR SC SCH (17:00)
--- NOTE | 2017-09-20 22:03 | Discharge Summary ---
PRINCIPAL DIAGNOSES 1. Hypertensive emergency. 2. Syncope. 3. Atrial fibrillation. 4. Congestive heart failure. 5. Abnormal electrocardiogram. 6. Acute kidney injury. SECONDARY DIAGNOSIS: Atrial fibrillation. CHIEF COMPLAINT: Passing out. HISTORY OF PRESENT ILLNESS: An 82-year-old woman who had passed out. Please refer to H and P for further details. HOSPITAL COURSE: Patient had syncopal episode. She had been recently started on Bystolic, antihypertensive medication. Echocardiogram was ordered. Cardiology was consulted. Telemetry was started. Cardiac enzymes were obtained. The patient had mild acute kidney injury. However, the patient refused any workup at this facility and refused echocardiogram. She refused to other testing and requested to be discharged home to follow up with her own youth accommodation support worker [place]. Therefore, the patient was discharged home as she was stable and blood pressure had improved now and agreed to follow up with her primary care doctor and youth accommodation support worker tomorrow. CONDITION ON DISCHARGE: Stable. DISCHARGE LOCATION: Home. DISCHARGE MEDICATIONS: Per electronic medical record. STACY LOZOYA MD Job#: [id number] ROHIT
== END 2017-09-20 15:04 | disposition home or self-care (01) ==
LOC: ER 04:04 → ERHOLD 05:55 → IMCU 07:17
PROVIDERS: ADMIT Internal Medicine; ATTEND Internal Medicine
DX: I16.1 Hypertensive emergency (principal); R55 Syncope and collapse; I10 Essential (primary) hypertension; I50.9 Heart failure, unspecified; E03.9 Hypothyroidism, unspecified; N17.9 Acute kidney failure, unspecified; I48.0 Paroxysmal atrial fibrillation; Z95.0 Presence of cardiac pacemaker; Z79.01 Long term (current) use of anticoagulants
CPT/HCPCS: 36415; 70450; 71046; 72125; 80053; 81001; 82550; 82553; 83735; 83880; 84439; 84443; 84484; 85025; 85610; 85730; 87086; 93005; 93306; 93880; 97116; 97161; 99284; G0378; G8978; G8979; J7030

== ENCOUNTER 2017-09-27 05:41 | Emergency (ER) | payer MEDICARE ==
[~2017-09-27] VITALS: Ht 170.2 cm; Wt 79.4 kg
--- OUTSIDE RECORDS SUMMARY | 2017-09-27 05:43 | XMS REPORT | Clinical Summary ---
Author Author [facility] Address Unknown Phone Unavailable Care Team Providers Care Jointer Machine Name Role Phone PCP Unavailable Allergies No [...] - INSERTION W/ MAC ANESTHESIA (SING/DUAL/MULT) 03/28/2017 [facility] Cardiology Marti Zimmerman Pacemaker (Primary - Encounter MD Maru Dx);Atrial fibrillation, 03/31/2017 unspecified type (HCC) 03/28/2017 Orders Only Internal Medicine Marti Zimmerman MD 11/09/2016 [facility] Cardiology Erick Landers MD Paroxysmal Encounter supraventricular tachycardia (HCC) 11/08/2016 Outside Orders Central Scheduling Erick Landers MD Paroxysmal supraventricular tachycardia (HCC) (Primary Dx) after 09/26/2016 Social History Tobacco Use Types Packs/Day Years Used Date Never Smoker Alcohol Use Drinks/Week oz/Week Comments No Sex Assigned at Date Recorded Not on file Last Filed Vital Signs Vital Sign Reading Time Taken Blood Pressure 135/76 03/31/2017 7:00 AM CHIROPRACTIC TEACHER Pulse 70 03/31/2017 7:00 AM CHIROPRACTIC TEACHER Temperature 36.6 C (97.9 F) 03/31/2017 7:00 AM CHIROPRACTIC TEACHER Respiratory Rate 18 03/31/2017 7:00 AM CHIROPRACTIC TEACHER Oxygen Saturation 91% 03/31/2017 7:00 AM CHIROPRACTIC TEACHER Inhaled Oxygen - - Concentration Weight 82.6 kg (182 lb 1.6 oz) 03/31/2017 7:00 AM CHIROPRACTIC TEACHER Height 167.6 cm (5' 6") 03/28/2017 3:00 PM CHIROPRACTIC TEACHER Body Mass Index 29.39 03/31/2017 7:00 AM CHIROPRACTIC TEACHER Plan of Treatment Not on file Implants Implanted Type Area Aerial Applicator Pilot Device Expiration Model / Identifier Date Serial / Lot Lead Pacemkr Capsur Novus 45x1 Pacemaker N/A: Heart [employer]TR[employer]:CARD [id number] / [id number] - [id number] Lead RHY:DISEASE MGT / Implanted: Qty: 1 on 03/29/2017 by Erick Landers MD Lead Pacemkr Capsur Novus 58cm Pacemaker Heart MEDTRONIC:CARD [id number] / [id number] - [id number] Lead RHY:DISEASE MGT [id number] Implanted: Qty: 1 on 03/29/2017 by / Erick Landers MD Pacemaker Ipg Advisa [id number] - Pacemakers N/A: Chest MEDTR[employer]IC:CARD [id number] / [id number] RHY:DISEASE MGT [id number] Implanted: Qty: 1 on 03/29/2017 by / Erick Landers MD Procedures Procedure Name Priority Date/Time Associated Diagnosis Comments PACEMAKER GEN & LEADS - 03/29/2017 Chest pain INSERTION W/ MAC 6:09 PM CHIROPRACTIC TEACHER ANESTHESIA (SING/DUAL/MULT) after 09/26/2016 Results * ARRYTHMIA IMPLANT REPORT - SCAN [...] MD Report Verified Date/Time:05/11/2017 16:36:59 Reading Location: [address] Radiology Reading Room Procedure Note Interface, External Ris In - 05/11/2017 4:39 PM CHIROPRACTIC TEACHER FINAL REPORT TECHNIQUE: Frontal and lateral views [...] Report Verified Date/Time: 05/11/2017 16:36:59 Reading Location: [address] Radiology Reading Room * RHYTHM STRIP [...] MD Report Verified Date/Time:03/30/2017 22:44:16 Reading Location: [address] [place] Reading Room Procedure Note Interface, External Ris In - 03/30/2017 10:46 PM CHIROPRACTIC TEACHER FINAL REPORT History: Pacemaker placement. Comparison: None. [...] Report Verified Date/Time: 03/30/2017 22:44:16 Reading Location: [address] Reading Room * ECG 12 lead (03/30/2017 3:44 PM) Specimen Performing Laboratory [facility] Narrative Ventricular Rate 92 BPM Atrial Rate 416 BPM QRS Duration 76 ms Q-T Interval 388 ms QTC Calculation(Bazett) 479 ms R [place] 49 degrees T [place] 224 degrees Atypical flutter/fibrillation with variable AV block with an occasional paced ventricular beat. LVH with repolarization abnormality Abnormal ECG No previous ECGs available Confirmed by Chapis WILCOX MICHAEL ([id number]) on 03/31/2017 9:37:12 AM Procedure Note Interface, External Ris In - 03/31/2017 9:37 AM CHIROPRACTIC TEACHER Ventricular Rate 92 BPM Atrial Rate 416 BPM QRS Duration 76 ms Q-T Interval 388 ms QTC Calculation(Bazett) 479 ms R [place] 49 degrees T [place] 224 degrees Atypical flutter/fibrillation with variable AV block with an occasional paced ventricular beat. LVH with repolarization abnormality Abnormal ECG No previous ECGs available Confirmed by Chapis WILCOX MICHAEL ([id number]) on 03/31/2017 9:37:12 AM * Transesophageal echo (03/30/2017 3:37 PM) Component Value Ref Range Ejection Fraction Specimen Performing Laboratory [facility] ECHO [facility]ART[facility] MKCKESSON CPACS Narrative Transesophageal Echocardiography Report (BETSY) Demographics Patient Name Mark VILLEDA of Study 03/30/2017 SHWETA [id number] Female Visit Number [id number] Unknown [id number] Room Number 1450 Number Date of Birth1935Referring Physician Anshul Suarez MD Age82 year(s)Aurist Ida Lombardo Interpreting Olimpia Turner Physician Fellow [...] External Ris In - 03/31/2017 6:53 AM CHIROPRACTIC TEACHER Transesophageal Echocardiography Report (BETSY) Demographics Patient Name SELIN VILLEDA Date of Study 03/30/2017 SHWETA Gender Female Visit Number [id number] Race Unknown Room Number 1450 Number Date of 1935 Referring Physician Anshul Suarez MD Age 82 year(s) Aurist Ida Lombardo Interpreting Olimpia Turner, Physician MD [...] - 2.6 mg/dL Specimen Performing Laboratory Blood [address] [address] Narrative Add magnesium to am draw from [...] FOR DIALYSIS PATIENTS. Specimen Performing Laboratory Blood [address] [address] * CBC with platelet count + automated [...] Granulocytes-Relative Specimen Performing Laboratory Blood - Arm, [address] [address] * aPTT (03/29/2017 6:10 AM) Only the most recent of 3 results within the time period is included. Component Value Ref Range PTT 69.1 (H) 22.5 - 36.0 seconds Specimen Performing Laboratory Blood - [place], [address] [address] * CBC with platelet count + automated diff (03/29/2017 6:10 AM) Only the most recent of 2 results within the time period is included. Specimen Performing Laboratory Blood Narrative The following orders were created for panel order CBC with platelet count + automated diff. Procedure Abnormality Status --------- - ------ CBC with platelet count ...[[id number]]AbnormalFinal result Please view results for these tests on the individual orders. * TSH/Free T4 If Indicated (03/28/2017 3:50 PM) Component Value Ref Range TSH 2.43 0.35 - 4.94 uIU/mL Specimen Performing Laboratory Blood - [place], [address] [address] * Prothrombin time/INR (03/28/2017 3:50 PM) Component Value Ref Range Protime 15.3 (H) 11.7 - 14.7 seconds INR 1.2 <=5.9 Specimen Performing Laboratory Blood - [place], [address] [address] Narrative RECOMMENDED COUMADIN/WARFARIN INR THERAPY RANGES STANDARD [...] U/L Specimen Performing Laboratory Blood - [place], [address] [address] Narrative Fasting lipid panel * Lipid panel (03/28/2017 3:50 PM) Component Value Ref Range Triglycerides 174 mg/dL Cholesterol 292 mg/dL HDL 44 mg/dL LDL Calculated 213 mg/dL Specimen Performing Laboratory Blood - [place], [address] [address] Narrative Triglyceride Reference Range: Low Risk <150 [id number] High Risk 200-499 Very High Risk>=500 Cholesterol Reference Range: Low Risk <200 [id number] High Risk>240 HDL Cholesterol Reference Range: Low Risk >=60 High Risk <40 LDL Cholesterol Reference Range: Optimal<100 Near Ummbcep143-181 [id number] Wcfj394-511 Very High >=190 Fasting lipid panel after 09/26/2016
--- OUTSIDE RECORDS SUMMARY | 2017-09-27 05:43 | XMS REPORT | Continuity of Care Document ---
Author Author [facility] Organization [facility] Address [address] [place] [address] Phone Unavailable Care Team Providers Care Pressure Sealer And Tester Name Role Phone TERESITA ARECHIGA MD PCP Insurance Providers Guarantor Selin Villeda Address [address] [place] [address] Email NONE Payer [employer] Medicare Policy Number [id number] Subscriber's Name Selin Villeda Relationship 18 Self / Same As Patient Effective Date 17 Payer [employer] Pos Policy Number [id number] Subscriber's Name Selin Villeda Relationship 18 Self / Same As Patient Advance Directives Directive Response Recorded Date/Time Does the patient have an advance directive? No 08/16/17 11:47pm If yes, is advance directive on file with [facility]? No 08/16/17 11:47pm If not on file with [facility] will patient provide a copy? No 09/20/17 4:02am Do you have a Directive to Physician? No 05/22/18 4:02am Do you have a Medical Power of Breast Puller? No 09/20/17 4:02am Do you have an out of hospital Do Not Resuscitate Order? No 09/20/17 4:02am Do you have any special needs we should be aware of? No 09/20/17 4:02am Do you have a support person here with you today? No 09/20/17 4:02am Did patient receive Notice of Privacy Practices? Yes 09/20/17 4:02am Did patient receive patient rights and responsibilities? Yes 09/20/17 4:02am Problems Medical Problem Onset Date Status Hypertension Unknown Syncope Unknown Medications Current Home Medications Medication Dose Units Route Directions Days Qty Instructions Start Date Eliquis 5 Mg Oral Twice A Day Losartan Potassium 100 Mg Tablet 100 Mg Oral Daily Sertraline Hcl 50 Mg Tablet Unknown Dose Oral Daily 30 Tab Social History Smoking Status Start Date Stop Date Current every day smoker Hospital Discharge Instructions No hospital discharge instruction information available. Plan of Care Discharge Date 09/20/17 3:04pm Disposition HOME, SELF-CARE Instructions/Education Provided Atrial Fibrillation Hypertension Prescriptions See Medication Section Additional Instructions/Education follow up with [employer] scout tomorrow continue home medications activity as tolerated Functional Status Query Response Date Recorded FUNCTIONAL STATUS . September 20, 2017 12:25pm Allergies, Adverse Reactions, Alerts No known allergies. Immunizations No immunization information available. Vital Signs Acute Vital Signs Vital Response Date/Time Temperature (Fahrenheit) 97.4 degrees F (97.6 - 99.5) 09/20/2017 12:16pm Pulse Pulse Rate (adult) 70 bpm (60 - 90) 09/20/2017 12:16pm Respiratory Rate 17 bpm (12 - 24) 09/20/2017 12:16pm Blood Pressure 151/83 mm Hg 09/20/2017 12:16pm Height 5 ft 7 in 09/20/2017 8:23am Weight 176.02 lb 09/20/2017 8:23am Body Mass Index 27.6 kg/m^2 09/20/2017 8:23am Results Laboratory Results Test Name Result Units Flags Reference Collection Date/Time Result Date/ Time Comments White Blood Count 8.08 x10e3/uL 4.8-10.8 09/20/2017 4:36am 09/20/2017 5 :05am Red Blood Count 4.84 x10e6/uL 3.6-5.1 09/20/2017 4:36am 09/20/2017 5: 05am Hemoglobin 13.7 g/dL 12.0-16.0 09/20/2017 4:3609/20/2017 5:05am Hematocrit 41.6 % 34.2-44.1 09/20/2017 4:36am 09/20/2017 5:05am Mean Corpuscular Volume 86.0 fL 81-99 09/20/2017 4:36am 09/20/2017 5: 05am Mean Corpuscular Hemoglobin 28.3 pg 28-32 09/20/2017 4:36am 09/20/2017 5:05am Mean Corpuscular Hemoglobin Concent 32.9 g/dL 31-35 09/20/2017 4:36am 09/20/2017 5:05am Red Cell Distribution Width 13.2 % 11.7-14.4 09/20/2017 4:36am 2017 5:05am Platelet Count 200 x10e3/uL 140-360 09/20/2017 4:36am 09/20/2017 5: 05am Neutrophils (%) (Auto) 54.1 % 38.7-80.0 09/20/2017 4:36am 09/20/2017 5: 05am Lymphocytes (%) (Auto) 34.0 % 18.0-39.1 09/20/2017 4:3609/20/2017 5: 05am Monocytes (%) (Auto) 8.7 % 4.4-11.3 09/20/2017 4:3609/20/2017 5: 05am Eosinophils (%) (Auto) 2.7 % 0.0-6.0 09/20/2017 4:3609/20/2017 5: 05am Basophils (%) (Auto) 0.4 % 0.0-1.0 09/20/2017 4:3609/20/2017 5:05am IM GRANULOCYTES % 0.1 % 0.0-1.0 09/20/2017 4:3609/20/2017 5:05am Neutrophils # (Auto) 4.4 2.1-6.9 09/20/2017 4:36am 09/20/2017 5:05am Lymphocytes # (Auto) 2.8 1.0-3.2 09/20/2017 4:36am 09/20/2017 5:05am Monocytes # (Auto) 0.7 0.2-0.8 09/20/2017 4:36am 09/20/2017 5:05am Eosinophils # (Auto) 0.2 0.0-0.4 09/20/2017 4:36am 09/20/2017 5:05am Basophils # (Auto) 0.0 0.0-0.1 09/20/2017 4:36am 09/20/2017 5:05am Absolute Immature Granulocyte (auto 0.01 x10e3/uL 0-0.1 09/20/2017 4: 36am 09/20/2017 5:05am Prothrombin Time 13.5 seconds 11.9-14.5 09/20/2017 4:36am 09/20/2017 5: 12am Prothromb Time International Ratio 1.11 09/20/2017 4:36am 2017 5:12am Oral Anticoagulant Therapy INR Values: 1. Low Intensity Therapy 1.5 - 2.0 2. Moderate Intensity Therapy 2.0 - 3.0 3. High Intensity Therapy(1) 2.5 - 3.5 4. High Intensity Therapy(2) 3.0 - 4.0 5. Panic Value INR > 5.0 Activated Partial Thromboplast Time 32.1 seconds 23.8-35.5 09/20/2017 4: 36am 09/20/2017 5:12am Urine Color YELLOW YELLOW 09/20/2017 4:36am 09/20/2017 5:06am Urine Clarity CLEAR CLEAR 09/20/2017 4:36am 09/20/2017 5:06am Urine Specific [place] 1.010 1.010-1.025 09/20/2017 4:36am 2017 5:06am Urine pH 5 5 - 7 09/20/2017 4:36am 09/20/2017 5:06am Urine Leukocyte Esterase TRACE H NEGATIVE 09/20/2017 4:36am 2017 5:06am Urine Nitrite NEGATIVE NEGATIVE 09/20/2017 4:36am 09/20/2017 5:06am Urine Protein NEGATIVE NEGATIVE 09/20/2017 4:36am 09/20/2017 5:06am Urine Glucose (UA) NEGATIVE NEGATIVE 09/20/2017 4:36am 09/20/2017 5: 06am Urine Ketones NEGATIVE NEGATIVE 09/20/2017 4:36am 09/20/2017 5:06am Urine Urobilinogen 0.2 mg/dL 0.2 - 1 09/20/2017 4:36am 09/20/2017 5: 06am Urine Bilirubin NEGATIVE NEGATIVE 09/20/2017 4:36am 09/20/2017 5: 06am Urine Blood NEGATIVE NEGATIVE 09/20/2017 4:36am 09/20/2017 5:06am Urine WBC 0-5 /HPF 0-5 09/20/2017 4:36am 09/20/2017 5:12am Urine RBC NONE /HPF 0-5 09/20/2017 4:36am 09/20/2017 5:12am Urine Bacteria NONE /HPF NONE 09/20/2017 4:36am 09/20/2017 5:12am Urine Epithelial Cells RARE /LPF NONE 09/20/2017 4:36am 09/20/2017 5: 12am Sodium Level 139 mmol/L 136-145 09/20/2017 4:36am 09/20/2017 5:27am Potassium Level 3.5 mmol/L 3.5-5.1 09/20/2017 4:36am 09/20/2017 5:27am Chloride Level 108 mmol/L H 98-107 09/20/2017 4:36am 09/20/2017 5:27am Carbon Dioxide Level 22 mmol/L 22-09/20/2017 4:36am 09/20/2017 5: 27am Anion Gap 12.5 mmol/L 8-16 09/20/2017 4:36am 09/20/2017 5:27am Blood Urea Nitrogen 10 mg/dL 7-09/20/2017 4:36am 09/20/2017 5:27am Creatinine 1.07 mg/dL 0.57-1.11 09/20/2017 4:36am 09/20/2017 5:27am BUN/Creatinine Ratio 9 6-09/20/2017 4:36am 09/20/2017 5:27am Estimat Glomerular Filtration Rate 49 ML/MIN L 60- 09/20/2017 4:36am 5:27am Ranges were taken from the National Kidney Disease Education Program and the National Kidney Foundation literature. Reference ranges: 60 or greater: Normal 16-59 (for 3 consecutive months): Chronic kidney disease 15 or less: Kidney failure Glucose Level 117 mg/dL 74-118 09/20/2017 4:36am 09/20/2017 5:27am Calcium Level 9.3 mg/dL 8.4-10.2 09/20/2017 4:36am 09/20/2017 5:27am Magnesium Level 2.0 MG/DL 1.3-2.1 09/20/2017 4:3609/20/2017 5:27am Total Bilirubin 0.5 mg/dL 0.2-1.2 09/20/2017 4:36am 09/20/2017 5:27am Aspartate Amino Transf (AST/SGOT) 16 IU/L 5-34 09/20/2017 4:36am 2017 5:27am Alanine Aminotransferase (ALT/SGPT) 8 IU/L 0-55 09/20/2017 4:36am 09/20 5:27am Total Protein 7.9 g/dL 6.5-8.1 09/20/2017 4:36am 09/20/2017 5:27am Albumin 3.8 g/dL 3.5-5.0 09/20/2017 4:36am 09/20/2017 5:27am Globulin 4.1 g/dL H 2.3-3.5 09/20/2017 4:36am 09/20/2017 5:27am Albumin/Globulin Ratio 0.9 0.8-2.0 09/20/2017 4:3609/20/2017 5: 27am Alkaline Phosphatase 81 IU/L 40-150 09/20/2017 4:36am 09/20/2017 5: 27am B-Type Natriuretic Peptide 360.0 pg/mL H 0-100 09/20/2017 4:36am 2017 5:30am Creatine Kinase 124 IU/L 29-168 09/20/2017 12:50pm 09/20/2017 1:35pm Creatine Kinase MB 6.20 ng/mL H 0-5.0 09/20/2017 12:50pm 09/20/2017 1: 53pm Troponin I 0.024 ng/mL 0-0.300 09/20/2017 12:50pm 09/20/2017 1:53pm Free Thyroxine 1.27 ng/dL 0.9-1.8 09/20/2017 4:36am 09/20/2017 9:49am Thyroid Stimulating Hormone (TSH) 5.682 uIU/mL H 0.350-4.940 09/20/2017 4 :36am 09/20/2017 5:49am Procedures Procedure Status Date Provider(s) Computed tomography of brain without radiopaque contrast Active 08/16/17 KOKI ORR MD Computed tomography of cervical spine without contrast Active 08/16/17 KOKI ORR MD Computed tomography of brain without radiopaque contrast Active 09/20/17 KALLI CHOPRA MD Computed tomography of cervical spine without contrast Active 09/20/17 KALLI CHOPRA MD X-ray of chest, two views Active 09/20/17 KALLI CHOPRA MD Encounters Encounter Location Arrival/Admit Date Discharge/Depart Date Attending Provider Discharged Inpatient (obs) [facility] 09/20/17 5:55am 3:04pm STACY LOZOYA MD Departed Emergency Room [facility] 08/16/17 8:46pm 12:09am KOKI ORR MD
[2017-09-27] MEDS ORDERED: CLONIDINE HCL 0.1 MG TAB PO ONE (07:00)
[2017-09-27 10:21] VITALS: BP 150/70
== END 2017-09-27 10:24 | disposition short-term general hospital (02) ==
LOC: FSED 05:41
DX: R07.89 Other chest pain (principal); I10 Essential (primary) hypertension
CPT/HCPCS: 71045; 80053; 82553; 83880; 84484; 85025; 99285

== ENCOUNTER 2018-03-10 17:23 | Emergency (ER) | payer MEDICARE ==
[~2018-03-10] VITALS: Ht 170.2 cm; Wt 77.1 kg
--- OUTSIDE RECORDS SUMMARY | 2018-03-10 17:27 | XMS REPORT | Summary of Care ---
Author Author [facility] Organization [facility] Address Unknown Phone Unavailable Encounter HQ Carline(SOLOMON) [id number] Date(s): 06/14/16 - 06/15/16 [facility] [address] [place] [address]- [phone] Discharge Disposition: Home or Self Care Attending Physician: Alli Kang MD Admitting Physician: Alli Kang MD Vital Signs 1 2 3 Most recent to oldest [Reference Range]: 167.64 cm (06/14/16 11:53 PM) 167.64 cm (06/14/16 6:12 PM) Height 98.4 DegF (06/15/16 12:00 PM) 97.5 DegF (06/15/16 8:00 AM) 98.3 DegF (06/15/16 4:00 AM) Temperature Oral [96.4-99.1 DegF] 167/98 mmHg *HI* (06/15/16 12:00 PM) 149/89 mmHg *HI* (06/15/16 8:00 AM) 151/78 mmHg *HI* (06/15/16 4:00 AM) Blood Pressure [90-140/60-90 mmHg] 18 BRMIN (06/15/16 12:00 PM) 14 BRMIN (06/15/16 10:52 AM) 18 BRMIN (06/15/16 8:00 AM) Respiratory Rate [14-20 BRMIN] 71 bpm (06/15/16 12:00 PM) 69 bpm (06/15/16 8:00 AM) 72 bpm (06/15/16 4:00 AM) Peripheral Pulse Rate [60-100 bpm] 81.818 kg (06/14/16 11:53 PM) 81.818 kg (06/14/16 6:12 PM) Weight 29.11 m2 (06/14/16 11:53 PM) 29.11 m2 (06/14/16 6:12 PM) Body Mass Index Problem List Condition Effective Dates Status Health Status Informant Benign essential 07/30/14 Active hypertension1 Cobalamin 08/23/14 Active deficiency2 Fatigue3 07/30/14 Active GI bleed(Confirmed) Resolved Hematochezia4 08/12/14 Active Hyperlipidemia5 09/04/14 Active Hypertension(Confirm Resolved ed) Hypothyroidism(Confi Resolved rmed) Hypothyroidism6 07/30/14 Active Impaired fasting 08/23/14 Active glycaemia7 Menopausal flushing8 07/30/14 Active Mixed anxiety and 07/30/14 Active depressive disorder9 Obesity(Confirmed) Active Screening for 08/12/14 Active malignant neoplasm of colon10 Vitamin D 08/23/14 Active [id number] 1Data migrated from [employer] on 11/06/14. 2Data migrated from [employer] on 11/06/14. 3Data migrated from [employer] on 11/06/14. 4Data migrated from [employer] on 11/06/14. 5Data migrated from [employer] on 11/06/14. 6Data migrated from [employer] on 11/06/14. 7Data migrated from [employer] on 11/06/14. 8Data migrated from [employer] on 11/06/14. 9Data migrated from [employer] on 11/06/14. 10Data migrated from [employer] on 11/06/14. 11Data migrated from [employer] on 11/06/14. Allergies, Adverse Reactions, Alerts Substance Reaction Severity Status NKDA Active Medications acetaminophen-hydrocodone 325 mg-5 mg oral tablet 1 tab, Route: PO, Drug Form: TAB, Dosing Weight 81.818, kg, Q4H, PRN Pain Score 4-6, Start date: 06/14/16 20:47:00 PSYCHOLOGY INTERN, Duration: 30 day, Stop date: 07/14/16 20 :46:00 CDT Notes: (Same as: [place] 325/5) Do not exceed 4gm/day of acetaminophen. Start Date: 06/14/16 Stop Date: 06/15/16 Status: Discontinued aspirin 325 mg, Route: PO, Drug form: TAB, ONCE, Dosing Weight 81.818, kg, Priority: STA T, Start date: 06/14/16 19:25:00 PSYCHOLOGY INTERN, Stop date: 06/14/16 19:25:00 PSYCHOLOGY INTERN Start Date: 06/14/16 Stop Date: 06/14/16 Status: Completed aspirin 325 mg tablet, enteric coated 325 mg=1 tab, PO, Daily, # 100 tab, 1 Refill(s), Pharmacy: [facility] Start Date: 06/15/16 Status: Ordered aspirin 325 mg tablet, enteric coated 325 mg, 1 tab, Route: PO, Drug form: ECTAB, Daily, Dosing Weight 81.818, kg, Verna ority: NOW, Start date: 06/15/16 10:46:00 PSYCHOLOGY INTERN, Duration: 30 day, Stop date: 06/30 10/16 9:00:00 CDT Notes: (Do Not Crush) Do not crush or chew. Start Date: 06/15/16 Stop Date: 06/15/16 Status: Discontinued atorvastatin 40 mg oral tablet 40 mg=1 tab, PO, Bedtime, # 30 tab, 3 Refill(s), Pharmacy: [facility] Start Date: 06/15/16 Status: Ordered Cardizem 20 mg, 4 mL, Route: IVP, Drug form: INJ, ONCE, Dosing Weight 81.818, kg, Priorit y: STAT, Start date: 06/14/16 18:48:00 PSYCHOLOGY INTERN, Stop date: 06/14/16 18:48:00 PSYCHOLOGY INTERN Notes: (Same as: Cardizem) Start Date: 06/14/16 Stop Date: 06/14/16 Status: Discontinued diltiazem 10 mg, Route: IVP, ONCE, Dosing Weight 81.818, kg, Priority: STAT, Start date: 0 06/14/16 19:30:00 PSYCHOLOGY INTERN, Stop date: 06/14/16 19:30:00 PSYCHOLOGY INTERN Start Date: 06/14/16 Stop Date: 06/14/16 Status: Completed diltiazem 120 mg/24 hours oral capsule, extended release 120 mg=1 cap, PO, Daily, # 30 cap, 3 Refill(s), Pharmacy: [facility] Start Date: 06/15/16 Status: Ordered Diltiazem Hydrochloride CD 120 mg, 1 cap, Route: PO, Drug form: ERCAP, Daily, Dosing Weight 81.818, kg, Verna ority: NOW, Start date: 06/15/16 10:45:00 PSYCHOLOGY INTERN, Duration: 30 day, Stop date: 06/30 10/16 9:00:00 CDT Start Date: 06/15/16 Stop Date: 06/15/16 Status: Discontinued heparin additive 25,000 unit [14 unit/kg/hr] + Premix Diluent Dextrose 5% 500 mL 500 mL, Rate: 19.12 ml/hr, Infuse over: 26.2 hr, Route: IV, Dosing Weight 68.3 k g, Total Volume: 500 mL, Start date: 06/14/16 20:46:00 PSYCHOLOGY INTERN, Duration: 30 day, St op date: 07/14/16 20:45:00 CDT Start Date: 06/14/16 Stop Date: 06/15/16 Status: Discontinued Lipitor 40 mg, 1 tab, Route: PO, Drug form: TAB, Bedtime, Dosing Weight 81.818, kg, Star t date: 06/15/16 21:00:00 PSYCHOLOGY INTERN, Duration: 30 day, Stop date: 07/14/16 21:00:00 CD T Notes: (Same as: Lipitor) Start Date: 06/15/16 Stop Date: 06/15/16 Status: Canceled Lopressor 50 mg, 1 tab, Route: PO, Drug form: TAB, Q12H, Dosing Weight 81.818, kg, Priorit y: Within 8 hours, Start date: 06/14/16 21:00:00 PSYCHOLOGY INTERN, Duration: 30 day, Stop donna e: 07/14/16 9:00:00 CDT Notes: (Same as: Lopressor) Start Date: 06/14/16 Stop Date: 06/15/16 Status: Discontinued metoprolol tartrate 25 mg, Route: PO, Drug form: TAB, ONCE, Dosing Weight 81.818, kg, Priority: STAT , Start date: 06/14/16 19:24:00 PSYCHOLOGY INTERN, Stop date: 06/14/16 19:24:00 PSYCHOLOGY INTERN Start Date: 06/14/16 Stop Date: 06/14/16 Status: Discontinued metoprolol tartrate 25 mg, Route: PO, Drug form: TAB, ONCE, Dosing Weight 81.818, kg, Priority: STAT , Start date: 06/14/16 19:37:00 PSYCHOLOGY INTERN, Stop date: 06/14/16 19:37:00 PSYCHOLOGY INTERN Start Date: 06/14/16 Stop Date: 06/14/16 Status: Completed ondansetron 4 mg, 2 mL, Route: IVP, Drug form: INJ, Q6H, Dosing Weight 81.818, kg, PRN Nause a & Vomiting, Start date: 06/14/16 20:47:00 PSYCHOLOGY INTERN, Duration: 30 day, Stop date: 07/14/16 20:46:00 CDT Notes: (Same as: Kaitlynn) MEDICATION WASTE Product Size: 4 mgProduct Was ashley: ___ mg Start Date: 06/14/16 Stop Date: 06/15/16 Status: Discontinued Saline Flush 0.9% 10 ml, Route: IVP, Drug Form: INJ, Dosing Weight 81.818, kg, PRN, PRN Line Flush , Start date: 06/14/16 20:47:00 PSYCHOLOGY INTERN, Duration: 30 day, Stop date: 07/14/16 21:46 :00 CDT Notes: (Same as: BD Posiflush) Start Date: 06/14/16 Stop Date: 06/15/16 Status: Discontinued Saline Flush 0.9% 10 mL, Route: IVP, Drug Form: INJ, Dosing Weight 81.364, kg, PRN, PRN Line Flush , Start date: 06/14/16 17:51:00 PSYCHOLOGY INTERN, Duration: 30 day, Stop date: 07/14/16 18:50 :00 CDT Notes: (Same as: BD Posiflush) Start Date: 06/14/16 Stop Date: 06/15/16 Status: Discontinued sertraline 100 mg, 1 tab, Route: PO, Drug form: TAB, BID, Dosing Weight 81.818, kg, Start d ate: 06/15/16 17:00:00 PSYCHOLOGY INTERN, Duration: 30 day, Stop date: 07/15/16 9:00:00 CDT Notes: (Same as: Zoloft) Start Date: 06/15/16 Stop Date: 06/15/16 Status: Canceled sodium chloride 0.9% 1000 ml INJ 1,000 mL 1,000 mL, Rate: 100 ml/hr, Infuse over: 10 hr, Route: IV, Dosing Weight 81.818 k g, Total Volume: 1,000, Start date: 06/14/16 19:30:00 PSYCHOLOGY INTERN, Duration: 30 day, Sto p date: 07/14/16 19:29:00 CDT Start Date: 06/14/16 Stop Date: 06/14/16 Status: Discontinued sodium chloride 0.9% 1000 ml INJ 1,000 mL 1,000 mL, Rate: 30 ml/hr, Infuse over: 33.3 hr, Route: IV, Dosing Weight 81.818 kg, Total Volume: 1,000, Start date: 06/14/16 20:47:00 PSYCHOLOGY INTERN, Duration: 30 day, St op date: 07/14/16 20:46:00 CDT Start Date: 06/14/16 Stop Date: 06/15/16 Status: Discontinued Results ELECTROLYTES 1 2 3 Most recent to oldest [Reference Range]: 141 mEq/L (06/15/16 4:11 AM) 139 mEq/L (06/14/16 6:24 PM) Sodium Lvl [135-145 mEq/L] 3.9 mEq/L (06/15/16 4:11 AM) 3.8 mEq/L (06/14/16 6:24 PM) Potassium Lvl [3.5-5.1 mEq/L] 107 mEq/L (06/15/16 4:11 AM) 104 mEq/L (06/14/16 6:24 PM) Chloride Lvl [95-109 mEq/L] 27 mEq/L (06/15/16 4:11 AM) 27 mEq/L (06/14/16 6:24 PM) CO2 [24-32 mEq/L] 10.9 mEq/L (06/15/16 4:11 AM) 11.8 mEq/L (06/14/16 6:24 PM) AGAP [10.0-20.0 mEq/L] CHEM PANEL 1 2 3 Most recent to oldest [Reference Range]: 1.10 mg/dL (06/15/16 4:11 AM) 1.20 mg/dL (06/14/16 6:24 PM) Creatinine Lvl [0.50-1.40 mg/dL] 48 mL/min/1.73m2 1 *NA* (06/15/16 4:11 AM) 43 mL/min/1.73m2 2 *NA* (06/14/16 6:24 PM) eGFR 14 mg/dL (06/15/16 4:11 AM) 13 mg/dL (06/14/16 6:24 PM) BUN [7-22 mg/dL] 11 (06/14/16 6:24 PM) B/C Ratio [6-25] 98 mg/dL (06/15/16 4:11 AM) 98 mg/dL (06/14/16 6:24 PM) Glucose Lvl [70-99 mg/dL] 8.2 g/dL (06/14/16 6:24 PM) Total Protein [6.4-8.4 g/dL] 3.5 g/dL (06/14/16 6:24 PM) Albumin Lvl [3.5-5.0 g/dL] 4.7 g/dL *HI* (06/14/16 6:24 PM) Globulin [2.7-4.2 g/dL] 0.7 (06/14/16 6:24 PM) A/G Ratio [0.7-1.6] 8.0 mg/dL *LOW* (06/15/16 4:11 AM) 8.5 mg/dL (06/14/16 6:24 PM) Calcium Lvl [8.5-10.5 mg/dL] 2.6 mg/dL (06/14/16 6:24 PM) Phosphorus [2.5-4.5 mg/dL] 2.1 mg/dL (06/15/16 4:11 AM) 2.2 mg/dL (06/14/16 6:24 PM) Magnesium Lvl [1.8-2.4 mg/dL] 14 unit/L (06/14/16 6:24 PM) ALT [0-65 unit/L] 13 unit/L (06/14/16 6:24 PM) AST [0-37 unit/L] 110 unit/L (06/14/16 6:24 PM) Alk Phos [39-136 unit/L] 0.3 mg/dL (06/14/16 6:24 PM) Bili Total [0.2-1.3 mg/dL] 1Result Comment: The eGFR is calculated using the CKD-EPI formula. In most young, healthy individuals the eGFR will be >90 mL/min/1.73m2. The eGFR declines with age. An eGFR of 60-89 may be normal in some populations, particularly the elderly, for whom the CKD-EPI formula has not been extensively validated. Use of the eGFR is not recommended in the following populations: Individuals with unstable creatinine concentrations, including patients and those with serious co-morbid conditions. Patients with extremes in muscle mass or diet. The data above are obtained from the National Kidney Disease Education Program ( NKDEP) which additionally recommends that when the eGFR is used in patients with extremes of body mass index for purposes of drug dosing, the eGFR should be mul tiplied by the estimated BMI. 2Result Comment: The eGFR is calculated using the CKD-EPI formula. In most young, healthy individuals the eGFR will be >90 mL/min/1.73m2. The eGFR declines with age. An eGFR of 60-89 may be normal in some populations, particularly the elderly, for whom the CKD-EPI formula has not been extensively validated. Use of the eGFR is not recommended in the following populations: Individuals with unstable creatinine concentrations, including patients and those with serious co-morbid conditions. Patients with extremes in muscle mass or diet. The data above are obtained from the National Kidney Disease Education Program ( NKDEP) which additionally recommends that when the eGFR is used in patients with extremes of body mass index for purposes of drug dosing, the eGFR should be mul tiplied by the estimated BMI. CARDIAC ENZYMES 1 2 3 Most recent to oldest [Reference Range]: 59 unit/L (06/14/16 6:24 PM) Total CK [12-191 unit/L] 2.3 ng/mL (06/14/16 6:24 PM) CK MB [0.5-3.6 ng/mL] 3.9 *HI* (06/14/16 6:24 PM) CK MB Index [0.0-2.5] 0.03 ng/mL (06/15/16 7:34 AM) 0.03 ng/mL (06/15/16 1:05 AM) 0.03 ng/mL (06/14/16 6:24 PM) Troponin-I [0.00-0.40 ng/mL] 468 pg/mL *HI* (06/14/16 6:24 PM) BNP [<=100 pg/mL] HEMATOLOGY 1 2 3 Most recent to oldest [Reference Range]: 10.7 K/CMM *HI* (06/15/16 4:11 AM) 11.5 K/CMM *HI* (06/14/16 6:24 PM) WBC [3.7-10.4 K/CMM] 5.00 M/CMM (06/15/16 4:11 AM) 5.30 M/CMM (06/14/16 6:24 PM) RBC [4.20-5.40 M/CMM] 14.4 g/dL (06/15/16 4:11 AM) 15.1 g/dL (06/14/16 6:24 PM) Hgb [12.0-16.0 g/dL] 43.1 % (06/15/16 4:11 AM) 45.1 % (06/14/16 6:24 PM) Hct [36.0-48.0 %] 86.3 fL (06/15/16:11 AM) 85.1 fL (06/14/16 6:24 PM) MCV [80.0-98.0 fL] 28.9 pg (06/15/16:11 AM) 28.5 pg (06/14/16 6:24 PM) MCH [27.0-31.0 pg] 33.4 g/dL (06/15/16 4:11 AM) 33.5 g/dL (06/14/16 6:24 PM) MCHC [32.0-36.0 g/dL] 14.0 % (06/15/16 4:11 AM) 14.1 % (06/14/16 6:24 PM) RDW [11.5-14.5 %] 171 K/CMM (06/15/16 4:11 AM) 183 K/CMM (06/14/16 6:24 PM) Platelet [133-450 K/CMM] 9.5 fL (06/15/16 4:11 AM) 9.5 fL (06/14/16 6:24 PM) MPV [7.4-10.4 fL] 60.0 % (06/15/16 4:11 AM) 73.2 % (06/14/16 6:24 PM) Segs [45.0-75.0 %] 28.0 % (06/15/16 4:11 AM) 17.6 % *LOW* (06/14/16 6:24 PM) Lymphocytes [20.0-40.0 %] 9.1 % (06/15/16 4:11 AM) 7.7 % (06/14/16 6:24 PM) Monocytes [2.0-12.0 %] 2.1 % (06/15/16 4:11 AM) 1.1 % (06/14/16 6:24 PM) Eosinophils [0.0-4.0 %] 0.8 % (06/15/16 4:11 AM) 0.4 % (06/14/16 6:24 PM) Basophils [0.0-1.0 %] 6.4 K/CMM (06/15/16 4:11 AM) 8.4 K/CMM *HI* (06/14/16 6:24 PM) Segs-Bands # [1.5-8.1 K/CMM] 3.0 K/CMM (06/15/16 4:11 AM) 2.0 K/CMM (06/14/16 6:24 PM) Lymphocytes # [1.0-5.5 K/CMM] 1.0 K/CMM *HI* (06/15/16 4:11 AM) 0.9 K/CMM *HI* (06/14/16 6:24 PM) Monocytes # [0.0-0.8 K/CMM] 0.2 K/CMM (06/15/16 4:11 AM) 0.1 K/CMM (06/14/16 6:24 PM) Eosinophils # [0.0-0.5 K/CMM] 0.1 K/CMM (06/15/16 4:11 AM) 0.1 K/CMM (06/14/16 6:24 PM) Basophils # [0.0-0.2 K/CMM] 13.1 seconds (06/15/16 12:08 PM) 12.9 seconds (06/15/16 4:11 AM) 13.3 seconds (06/14/16 9:19 PM) PT [12.0-14.7 seconds] 0.97 (06/15/16 12:08 PM) 0.95 (06/15/16 4:11 AM) 0.99 (06/14/16 9:19 PM) INR [0.85-1.17] 36.5 seconds *HI* (06/15/16 12:08 PM) 52.4 seconds *HI* (06/15/16 4:11 AM) 29.2 seconds (06/14/16 9:19 PM) PTT [22.9-35.8 seconds] Immunizations No data available for this section Procedures No data available for this section Social History Social History Type Response Substance Abuse Use: None. Sexual Sexually active: No. Alcohol Past Smoking Status Never smoker; Exposure to Tobacco Smoke None; Cigarette Smoking Last 365 Days No; Reg Smoking Cessation Counseling No Assessment and Plan Extracted from: Title: Clinical Document Author: Grayson Mohan MD Date: 06/15/16 [facility] Initial Cardiology Consultation Note Reason for Consult: Atrial fibrillation with RVR Chief Complaint: Palpitations HPI: 81-year-old female with history of hypertension, hyperlipidemia, chronic diastolic heart failure, who presented to the hospital with palpitations for the past 2-3 days. The patient was seen at her primary care physician's office and found to have a heart rate in 130s beats per minute. She was then sent to emergency room where she was found to be in atrial ablation with RVR with a heart rate of 130 b pm. She is given 20 mg of IV Cardizem which slowed her heart rate down. According to the admission H&P, she converted to sinus rhythm in the ER. However there is no documentation of this. She is currently in atrial fibrillation with a rate controlled. She has no chest pain or shortness of breath. No palpitations. She is currently on heparin and denies any bleeding. No lightheadedness or dizziness. At home she takes losartan 100 mg p.o. daily. She is to stay Coreg also at home however she does not take it at home because she says she feels lightheaded and dizzy with the medication in addition to feeling nauseated. At home the patient takes Coreg 12.5 mg every 12, losartan 100 mg, pravastatin 20. REVIEW OF SYSTEMS: CONSTITUTIONAL: No fever. No chills. No dizziness. No weakness. EYES: No pain, erythema, or discharge. No blurring of vision. EAR, NOSE AND THROAT: No sore throat, URI symptoms. No epistaxis. No tinnitus. CARDIOVASCULAR: No chest pain. + palpitations. No lower extremity edema. RESPIRATORY: No shortness of breath, cough, pain with respiration, or pleuritic chest pain. No hemoptysis. No dyspnea. No paroxysmal nocturnal dyspnea. GASTROINTESTINAL: Normal appetite. No nausea, vomiting, diarrhea. No pain. No bloating. No melena. GENITOURINARY: No frequency, urgency, nocturia. No hematuria or dysuria. MUSCULOSKELETAL: No arthralgias or myalgias. INTEGUMENTARY: No swelling. No bruising. No contusions. No abrasions. No lymphangitis. NEUROLOGIC: No headache. No neck pain. No numbness or tingling of the extremities. No weakness. PSYCHIATRIC: No confusion. METABOLIC: No fatigue. No weakness. No history of thyroid, diabetes or adrenal problems. HEMATOLOGICAL: No bleeding. No petechiae. No bruising. ALLERGY: No asthma. No urticaria. PAST MEDICAL HISTORY: Hypothyroidism Hypertension GI bleed PAST SURGICAL HISTORY: No qualifying data available FAMILY HISTORY: No qualifying data available SOCIAL HISTORY: No tobacco, alcohol, or drug abuse MEDICATIONS: See inpatient medications below Allergies: NKDA VitalsTmp(F)[id number] 06/15 08:[id number]--- 06/15 04:[id number]--- 06/15 00:31 1693 21% 06/15 00:[id number]--- 06/14 23:52-------162/84-------- 24 Hr Tmax: 98.4F (36.89c) at 06/15 00:00Vital Signs are the last 5 in the past 48 hours. Gen: Alert, no apparent distress Neck: No carotid bruits, No JVD Lungs: CTAB Heart: irregularly irregular, normal s1 s2, no murmurs Abd: Soft, nt, nd, +bs Ext: No edema Neuro: No focal deficits Skin: warm, moist Labs (Last four charted values) WBC H 10.7(FEB 14)H 11.5(JUN 13) Hgb 14.4(B 14)15.1(B 13) Hct 43.1(B 14)45.1(JUN 13) Plt 171(B 14)183(B 13) Na 141(B 14)139(B 13) K 3.9(B 14)3.8(JUN 13) CO2 27(JUN 14)27(JUN 14) Cl 107(JUN 14)104(JUN 14) Cr 1.10(JUN 14)1.20(JUN 14) BUN 14(JUN 14)13(JUN 14) Glucose Random 98(JUN 15)98(JUN 14) Mg 2.1(JUN 15)2.2(JUN 14) Phos 2.6(JUN 14) Ca L 8.0(JUN 15)8.5(JUN 14) PT 12.9(JUN 15)13.3(JUN 14) INR 0.95(JUN 15)0.99(JUN 14) PTT H 52.4(JUN 15)29.2(JUN 14) Troponin 0.03(JUN 15)0.03(JUN 15)0.03(JUN 14) CK MB 2.3(JUN 14) Total CK 59(JUN 14) Impression: New onset atrial fibrillation with RVR Palpitations hypertension hyperlipidemia Chronic diastolic heart failure Abnormal EKG Plan: The patient presented to the ER with new onset atrial for ablation with RVR. She is currently in atrial fibrillation but her rate is controlled. At home she has not been taking Coreg because it makes her feel nauseated and lightheaded as well as dizzy. She has been started on metoprolol here by the primary team however she is still feeling nauseated with the medication. She says she will not take it if she goes home with it. She appears to have tolerated Cardizem IV in the ER. I will start him on p.o. diltiazem. I discussed with her extensively about anticoagulation. I discussed the risk and benefits of Coumadin as well as the newer anticoagulants such as Xarelto and Eliquis. She is very hesitant to start any of these blood thinners. Since she is hesitant to start blood thinners, I will also avoid pursuing a BETSY/cardioversion to convert her to normal rhythm since she would have to be on a blood thinner for 1 month afterwards. Given all this, I will pursue rate control with diltiazem and start her on aspirin 325 mg p.o. I will stop the heparin since she says it is not making her feel good. She can follow-up in my office in 2 weeks to see how she is doing. In addition we can discuss anticoagulation options again at that time. If her rate is controlled on diltiazem p.o., she can go home today from a cardiology standpoint. Her echocardiogram will be reviewed by me. Over 45 minutes was spent taking care this patient and explaining all the different options to her extensively. Think this consult. We will continue to follow. Please call with any questions. Continuous Infusions (2): 06/14/16 heparin 25,000 unit [14 unit/kg/hr] + Premix Diluent Dextrose 5% 500 mL (heparin additive 25,000 unit [14 unit/kg/hr] + Premix Diluent Dextrose 5% 500 mL) 500 mL 19.12 ml/hr 06/14/16 sodium chloride 0.9% 1000 ml INJ 1,000 mL 1,000 mL 30 ml/hr Scheduled Meds (1): 06/14/16 metoprolol (Lopressor) 50 mg PO Q12H
--- OUTSIDE RECORDS SUMMARY | 2018-03-10 17:27 | XMS REPORT ---
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 Cardio Study 794.39 Active Medications Medication Code System Code Instructions Start Date End Date Status Dosage Losartan Pot[facility] [address]-24 100 MG Orally Once a day Active 1 tablet ZyrTEC Unknown 0 Active Unknown Hydrochlorothiazide [facility] [address]-29 12.5 MG Orally Once a day Feb 04, 2014 Active 1 capsule Escitalopram Oxalate [facility] [address]-56 10 MG Orally Once a day Active 1 tablet Nexium [facility] [address]-51 40 MG Orally Once a day Active 1 capsule Coreg [facility] [address]-85 12.5 MG Orally Twice a day Feb 04, 2014 Active 1 tablet with food Carvedilol [facility] [address]-63 6.25 MG Orally Twice a day Active 1 tablet with food Dulera [facility] [address]-62 100-5 MCG/ACT Inhalation Active Unknown Levothyroxine Sodium [facility] [address]-47 125 MCG Orally Once a day Active 1 tablet Social History Social History Element Qualifiers Date Reported Smoking: . Are you a: Never smoker Feb 19, 2014 Alcohol: . None Feb 19, 2014 Vital Signs Date/Time: Feb 04, 2014 Weight 190 lbs Cardiac Monitoring Heart Rate 68 /min Blood Pressure Diastolic 92 mm Hg Blood Pressure Systolic 164 mm Hg Summary Purpose [employer] Submission
--- OUTSIDE RECORDS SUMMARY | 2018-03-10 17:27 | XMS REPORT ---
Author Author Oliva Baptiste Organization [employer] Address Unknown Phone Unavailable Care Team Providers Care An/Ssn 2 4 Operator Name Role Phone Oliva Baptiste CP Unavailable Allergies, Adverse Reactions, Alerts Substance Reaction Event Type Rag weed Info Not Available Non Drug Allergy Encounters Encounter Location Date HIGH BP Oliva Baptiste [place], [place] Feb 04, 2014 f/u Echo Oliva Baptiste [place], [place] Feb 19, 2014 Problems Problem Type Condition ICD-9 Code [...] Instructions Start Date End Date Status Dosage Coreg [facility] [address]-29 12.5 MG Orally Twice a day Active 1 tablet with food [facility] [address]-65 6.25 MG Orally Twice a day Active 1 tablet with food Losartan Potassium [facility] [address]-95 100 MG Orally Once a day Active 1 tablet Levothyroxine Sodium [facility] [address]-03 125 MCG Orally Once a day Active [address] [facility] [address]-41 12.5 MG Orally Once a day Active 1 capsule ZyrTEC Unknown 0 Active Unknown Dulera [facility] [address]-12 100-5 MCG/ACT Inhalation Active Unknown Nexium [facility] [address]-40 40 MG Orally Once a day Active 1 capsule [facility] [address]-06 10 MG Orally Once a day Active 1 tablet Social History Social History Element Qualifiers Date Reported Smoking: . Are you a: Never smoker Feb 19, 2014 Alcohol: . None Feb 19, 2014 Vital Signs Date/Time: Feb 19, 2014 Weight 190 lbs Cardiac Monitoring Heart Rate 76 /min Blood Pressure Diastolic 64 mm Hg Blood Pressure Systolic 112 mm Hg Summary Purpose eClinicalWorks Submission
--- OUTSIDE RECORDS SUMMARY | 2018-03-10 17:27 | XMS REPORT | Continuity of Care Document ---
Author Author [facility] Interface Address Unknown Phone Unavailable Problems Problem Status Onset Date Classification Date Reported Comments Source ATRIAL FRIBRILLATION WITH RVT Active 06/14/2016 [facility] ABN EKG/DR SENT Active 06/14/2016 [facility] Hyperlipidemia<sup>5</sup> Active 09/04/2014 Problem 06/18/2016 Data migrated from [employer] on 11/06/14. [facility] Cobalamin deficiency<sup>2</sup> Active 08/23/2014 Problem 06/18/2016 Data migrated from [employer] on 11/06/14. 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 [facility] Vitamin D deficiency<sup>11</sup> Active 08/23/2014 Problem 06/18/2016 Data migrated from [employer] on 11/06/14. [facility] Hematochezia<sup>4</sup> Active 08/12/2014 Problem 06/18/2016 Data migrated from [employer] on 11/06/14. [facility] Screening for malignant neoplasm of colon<sup>10</sup> Active 08/12/2014 Problem 06/18/2016 Data migrated from [employer] on 11/06/14. [facility] Benign essential hypertension<sup>1</sup> Active 07/30/2014 Problem 06/18/2016 Data migrated from [employer] on 11/06/14. [facility] Fatigue<sup>3</sup> Active 07/30/2014 Problem 06/18/2016 Data migrated from [employer] on 11/06/14. [facility] Hypothyroidism<sup>6</sup> Active 07/30/2014 Problem 06/18/2016 Data migrated from [employer] on 11/06/14. [facility] Menopausal flushing<sup>8</sup> Active 07/30/2014 Problem 06/18/2016 Data migrated from [employer] on 11/06/14. 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 [facility] Precordial pain Active Diagnosis 06/05/2016 Oliva Baptiste Benign hypertensive heart disease without heart failure Active Diagnosis 06/05/2016 Oliva Baptiste Shortness of breath Active Diagnosis 06/05/2016 Oliva Baptiste Abnormal EKG Active Diagnosis 06/05/2016 Oliva Baptiste Abn. Cardio Study Active Diagnosis 06/05/2016 Oliva Baptiste GI bleed Resolved Problem 06/18/2016 [facility] Hypertension Resolved Problem 06/18/2016 [facility] Hypothyroidism Resolved Problem 06/18/2016 [facility] Obesity Active Problem 06/18/2016 [facility] UNSPECIFIED ATRIAL FIBRILLATION Active [facility] Medications Medication Details Route Status Patient Instructions Ordering Provider Order Date Source Lipitor 40 mg, 1 tab, Route: PO, Drug form: TAB, Bedtime, Dosing Weight 81.818, kg, Start date: 06/15/16 21:00:00 [employer], Duration: 30 day, Stop date: 07/14/16 21:00:00 CDTNotes: (Same as: Lipitor) Inactive 06/16/2016 [facility] Sertraline 100 mg, 1 tab, Route: PO, Drug form: TAB, BID, Dosing Weight 81.818, kg, Start date: 06/15/16 17:00:00 [employer], Duration: 30 day, Stop date: 07/15/16 9:00:00 CDTNotes: (Same as: Zoloft) Inactive 06/15/2016 [facility] diltiazem 120 mg/24 hours oral capsule, extended release 120 mg=1 cap, PO, Daily, # 30 cap, 3 Refill(s), [facility]acy: [facility] Active 06/15/2016 [facility] atorvastatin 40 mg oral tablet 40 mg=1 tab, PO, Bedtime, # 30 tab, 3 Refill(s), [facility]acy: [facility] Active 06/15/2016 [facility] Aspirin 325 MG Enteric Coated Tablet 325 mg=1 tab, PO, Daily, # 100 tab, 1 Refill(s), [facility]acy: [facility] Active 06/15/2016 [facility] Aspirin 325 MG Enteric Coated Tablet 325 mg, 1 tab, Route: PO, Drug form: ECTAB, Daily, Dosing Weight 81.818, kg, Priority: NOW, Start date: 06/15/16 10:46:00 [employer], Duration: 30 day, Stop date: 07/15/16 9:00:00 CDTNotes: (Do Not Crush) Do not crush or chew. Inactive 06/15/2016 [facility] Diltiazem Hydrochloride CD 120 mg, 1 cap, Route: PO, Drug form: ERCAP, Daily, Dosing Weight 81.818, kg, Priority: NOW, Start date: 06/15/16 10:45:00 [employer], Duration: 30 day, Stop date: 07/15/16 9:00:00 CDT Inactive 06/15/2016 [facility] Lopressor 50 mg, 1 tab, Route: PO, Drug form: TAB, Q12H, Dosing Weight 81.818, kg, Priority: Within 8 hours, Start date: 06/14/16 21:00:00 [employer], Duration: 30 day, Stop date: 07/14/16 9:00:00 CDTNotes: (Same as: Lopressor) No Longer Active 06/15/2016 [facility] Acetaminophen 325 MG / Hydrocodone Bitartrate 5 MG Oral Tablet 1 tab, Route: PO, Drug Form: TAB, Dosing Weight 81.818, kg, Q4H, PRN Pain Score 4-6, Start date: 06/14/16 20:47:00 [employer], Duration: 30 day, Stop date: 07/14/16 20:46:00 CDTNotes: (Same as: [place] 325/5) Do not exceed 4gm/day of acetaminophen. No Longer Active 06/15/2016 [facility] Sodium Chloride 0.154 MEQ/ML Injectable Solution 1,000 mL, Rate: 30 ml/hr, Infuse over: 33.3 hr, Route: IV, Dosing Weight 81.818 kg, Total Volume: 1,000, Start date: 06/14/16 20:47:00 [employer], Duration: 30 day, Stop date: 07/14/16 20:46:00 CDT No Longer Active 06/15/2016 [facility] Ondansetron 4 mg, 2 mL, Route: IVP, Drug form: INJ, Q6H, Dosing Weight 81.818, kg, PRN Nausea & Vomiting, Start date: 06/14/16 20:47:00 [employer], Duration: 30 day, Stop date: 07/14/16 20:46:00 CDTNotes: (Same as: Zofran) MEDICATION WASTE Product Size: 4 mg Product Wasted: ___ mg No Longer Active 06/15/2016 [facility] Saline Flush 0.9% 10 ml, Route: IVP, Drug Form: INJ, Dosing Weight 81.818, kg, PRN, PRN Line Flush, Start date: 06/14/16 20:47:00 [employer], Duration: 30 day, Stop date: 07/14/16 21:46:00 CDTNotes: (Same as: BD Posiflush) No Longer Active 06/15/2016 [facility] heparin additive 25,000 unit [14 unit/kg/hr] + Premix Diluent Dextrose 5% 500 mL 500 mL, Rate: 19.12 ml/hr, Infuse over: 26.2 hr, Route: IV, Dosing Weight 68.3 kg, Total Volume: 500 mL, Start date: 06/14/16 20:46:00 [employer], Duration: 30 day, Stop date: 07/14/16 20:45:00 CDT No Longer Active 06/15/2016 [facility] metoprolol tartrate 25 mg, Route: PO, Drug form: TAB, ONCE, Dosing Weight 81.818, kg, Priority: STAT, Start date: 06/14/16 19:37:00 [employer], Stop date: 06/14/16 19:37:00 [employer] Inactive 06/15/2016 [facility] sodium chloride 0.9% 1000 ml INJ 1,000 mL 1,000 mL, Rate: 100 ml/hr, Infuse over: 10 hr, Route: IV, Dosing Weight 81.818 kg, Total Volume: 1,000, Start date: 06/14/16 19:30:00 [employer], Duration: 30 day, Stop date: 07/14/16 19:29:00 CDT Inactive 06/15/2016 [facility] Diltiazem 10 mg, Route: IVP, ONCE, Dosing Weight 81.818, kg, Priority: STAT, Start date: 06/14/16 19:30:00 [employer], Stop date: 06/14/16 19:30:00 [employer] Inactive 06/15/2016 [facility] Aspirin 325 mg, Route: PO, Drug form: TAB, ONCE, Dosing Weight 81.818, kg, Priority: STAT, Start date: 06/14/16 19:25:00 [employer], Stop date: 06/14/16 19:25:00 [employer] Inactive 06/15/2016 [facility] metoprolol tartrate 25 mg, Route: PO, Drug form: TAB, ONCE, Dosing Weight 81.818, kg, Priority: STAT, Start date: 06/14/16 19:24:00 [employer], Stop date: 06/14/16 19:24:00 [employer] Inactive 06/15/2016 [facility] Cardizem 20 mg, 4 mL, Route: IVP, Drug form: INJ, ONCE, Dosing Weight 81.818, kg, Priority: STAT, Start date: 06/14/16 18:48:00 [employer], Stop date: 06/14/16 18:48:00 CSTNotes: (Same as: Cardizem) Inactive 06/15/2016 [facility] Saline Flush 0.9% 10 mL, Route: IVP, Drug Form: INJ, Dosing Weight 81.364, kg, PRN, PRN Line Flush, Start date: 06/14/16 17:51:00 [employer], Duration: 30 day, Stop date: 07/14/16 18:50:00 CDTNotes: (Same as: BD Posiflush) No Longer Active 06/14/2016 [facility] Hydrochlorothiazide 1 capsule Orally Active 12.5 MG Orally Once a day [facility] 02/04/2014 [facility] Coreg 1 tablet with food Orally Active 12.5 MG Orally Twice a day [facility] 02/04/2014 [facility] Coreg 1 tablet with food Orally Active 12.5 MG Orally Twice a day [facility] Carvedilol 1 tablet with food Orally Active 6.25 MG Orally Twice a day [facility] Losartan Potassium 1 tablet Orally Active 100 MG Orally Once a day [facility] Levothyroxine Sodium 1 tablet Orally Active 125 MCG Orally Once a day [facility] Hydrochlorothiazide 1 capsule Orally Active 12.5 MG Orally [facility] ZyrTEC Unknown NA Active [facility] Dulera Unknown Inhalation Active 100-5 MCG/ACT Inhalation [facility] Nexium 1 capsule Orally Active 40 MG Orally Once a day [facility] Escitalopram Oxalate 1 tablet Orally Active 10 MG Orally Once a day [facility] Allergies, Adverse Reactions, Alerts Substance Category Reaction Severity Reaction type Status Date Reported Comments Source Rag weed Adverse Reaction Info Not Available Adverse Reaction Active 02/19/2014 [facility] Immunizations Immunization Date Given Site Status Last Updated Comments Source Results Order Name Results Value Reference Range Date Interpretation Comments Source HEMATOLOGY INR 0.97 0.85 - 1.17 06/15/2016 [facility] HEMATOLOGY PT 13.1 s 12.0 - 14.7 06/15/2016 [facility] HEMATOLOGY PTT 36.5 s 22.9 - 35.8 06/15/2016 [facility] CARDIAC ENZYMES Troponin-I 0.03 ng/mL 0.00 - 0.40 06/15/2016 [facility] CHEM PANEL Magnesium Lvl 2.1 mg/dL 1.8 - 2.4 06/15/2016 [facility] ELECTROLYTES AGAP 10.9 meq/L 10.0 - 20.0 06/15/2016 [facility] ELECTROLYTES eGFR 48 mL/min/1.73m2 06/15/2016 Result Comment: The eGFR is calculated using the [...] from the National Kidney Disease Education Program (NKDEP) which additionally recommends that when the eGFR is used in patients with extremes of body mass index for purposes of drug dosing, the eGFR should be multiplied by the estimated BMI. [facility] ELECTROLYTES Chloride Lvl 107 meq/L 95 - 109 06/15/2016 [facility] ELECTROLYTES CO2 27 meq/L 24 - 32 06/15/2016 [facility] ELECTROLYTES Calcium Lvl 8.0 mg/dL 8.5 - 10.5 06/15/2016 [facility] ELECTROLYTES Sodium Lvl 141 meq/L 135 - 145 06/15/2016 [facility] ELECTROLYTES Creatinine Lvl 1.10 mg/dL 0.50 - 1.40 06/15/2016 [facility] ELECTROLYTES Potassium Lvl 3.9 meq/L 3.5 - 5.1 06/15/2016 [facility] ELECTROLYTES Glucose Lvl 98 mg/dL 70 - 99 06/15/2016 [facility] ELECTROLYTES BUN 14 mg/dL 7 - 22 06/15/2016 [facility] RBC 5.00 M/CMM 4.20 - 5.40 06/15/2016 [facility] HEMATOLOGY WBC 10.7 K/CMM 3.7 - 10.4 06/15/2016 [facility] HEMATOLOGY MPV 9.5 fL 7.4 - 10.4 06/15/2016 [facility] Hgb 14.4 g/dL 12.0 - 16.0 06/15/2016 [facility] MCHC 33.4 g/dL 32.0 - 36.0 06/15/2016 [facility] MCV 86.3 fL 80.0 - 98.0 06/15/2016 [facility] MCH 28.9 pg 27.0 - 31.0 06/15/2016 [facility] Hct 43.1 % 36.0 - 48.0 06/15/2016 [facility] Platelet 171 K/CMM 133 - 450 06/15/2016 [facility] RDW 14.0 % 11.5 - 14.5 06/15/2016 [facility] Eosinophils # 0.2 K/CMM 0.0 - 0.5 06/15/2016 [facility] Monocytes # 1.0 K/CMM 0.0 - 0.8 06/15/2016 [facility] Basophils 0.8 % 0.0 - 1.0 06/15/2016 [facility] Lymphocytes # 3.0 K/CMM 1.0 - 5.5 06/15/2016 [facility] Segs-Bands # 6.4 K/CMM 1.5 - 8.1 06/15/2016 [facility] Basophils # 0.1 K/CMM 0.0 - 0.2 06/15/2016 [facility] Eosinophils 2.1 % 0.0 - 4.0 06/15/2016 [facility] Monocytes 9.1 % 2.0 - 12.0 06/15/2016 [facility] HEMATOLOGY Segs 60.0 % 45.0 - 75.0 06/15/2016 [facility] Lymphocytes 28.0 % 20.0 - 40.0 06/15/2016 [facility] HEMATOLOGY PT 12.9 s 12.0 - 14.7 06/15/2016 [facility] HEMATOLOGY INR 0.95 0.85 - 1.17 06/15/2016 [facility] HEMATOLOGY PTT 52.4 s 22.9 - 35.8 06/15/2016 [facility] CARDIAC ENZYMES Troponin-I 0.03 ng/mL 0.00 - 0.40 06/15/2016 [facility] HEMATOLOGY PTT 29.2 s 22.9 - 35.8 06/15/2016 [facility] HEMATOLOGY INR 0.99 0.85 - 1.17 06/15/2016 [facility] HEMATOLOGY PT 13.3 s 12.0 - 14.7 06/15/2016 [facility] CARDIAC ENZYMES Total CK 59 unit/L 12 - 191 06/15/2016 [facility] CARDIAC ENZYMES CK MB 2.3 ng/mL 0.5 - 3.6 06/15/2016 [facility] CARDIAC ENZYMES Troponin-I 0.03 ng/mL 0.00 - 0.40 06/15/2016 [facility] CARDIAC ENZYMES BNP 468 pg/mL <=100 pg/mL 06/15/2016 [facility] CARDIAC ENZYMES CK MB Index 3.9 0.0 - 2.5 06/15/2016 [facility] CHEM PANEL Phosphorus 2.6 mg/dL 2.5 - 4.5 06/15/2016 [facility] CHEM PANEL Magnesium Lvl 2.2 mg/dL 1.8 - 2.4 06/15/2016 [facility] CHEM PANEL eGFR 43 mL/min/1.73m2 06/15/2016 Result Comment: The eGFR is calculated using the [...] from the National Kidney Disease Education Program (NKDEP) which additionally recommends that when the eGFR is used in patients with extremes of body mass index for purposes of drug dosing, the eGFR should be multiplied by the estimated BMI. [facility] CHEM PANEL BUN 13 mg/dL 7 - 22 06/15/2016 [facility] CHEM PANEL Potassium Lvl 3.8 meq/L 3.5 - 5.1 06/15/2016 [facility] CHEM PANEL Glucose Lvl 98 mg/dL 70 - 99 06/15/2016 [facility] CHEM PANEL Calcium Lvl 8.5 mg/dL 8.5 - 10.5 06/15/2016 [facility] CHEM PANEL Total Protein 8.2 g/dL 6.4 - 8.4 06/15/2016 [facility] CHEM PANEL Albumin Lvl 3.5 g/dL 3.5 - 5.0 06/15/2016 [facility] CHEM PANEL ALT 14 unit/L 0 - 65 06/15/2016 [facility] CHEM PANEL AST 13 unit/L 0 - 37 06/15/2016 [facility] CHEM PANEL Sodium Lvl 139 meq/L 135 - 145 06/15/2016 [facility] CHEM PANEL Chloride Lvl 104 meq/L 95 - 109 06/15/2016 [facility] CHEM PANEL Creatinine Lvl 1.20 mg/dL 0.50 - 1.40 06/15/2016 [facility] CHEM PANEL CO2 27 meq/L 24 - 32 06/15/2016 [facility] CHEM PANEL A/G Ratio 0.7 0.7 - 1.6 06/15/2016 [facility] CHEM PANEL Globulin 4.7 g/dL 2.7 - 4.2 06/15/2016 [facility] CHEM PANEL Bili Total 0.3 mg/dL 0.2 - 1.3 06/15/2016 [facility] CHEM PANEL B/C Ratio 11 6 - 25 06/15/2016 [facility] CHEM PANEL Alk Phos 110 unit/L 39 - 136 06/15/2016 [facility] CHEM PANEL AGAP 11.8 meq/L 10.0 - 20.0 06/15/2016 [facility] HEMATOLOGY MCH 28.5 pg 27.0 - 31.0 06/15/2016 [facility] HEMATOLOGY MCV 85.1 fL 80.0 - 98.0 06/15/2016 [facility] HEMATOLOGY Platelet 183 K/CMM 133 - 450 06/15/2016 [facility] HEMATOLOGY MPV 9.5 fL 7.4 - 10.4 06/15/2016 [facility] HEMATOLOGY MCHC 33.5 g/dL 32.0 - 36.0 06/15/2016 [facility] HEMATOLOGY RDW 14.1 % 11.5 - 14.5 06/15/2016 [facility] HEMATOLOGY Hct 45.1 % 36.0 - 48.0 06/15/2016 [facility] HEMATOLOGY Hgb 15.1 g/dL 12.0 - 16.0 06/15/2016 [facility] HEMATOLOGY RBC 5.30 M/CMM 4.20 - 5.40 06/15/2016 [facility] HEMATOLOGY WBC 11.5 K/CMM 3.7 - 10.4 06/15/2016 [facility] HEMATOLOGY Eosinophils # 0.1 K/CMM 0.0 - 0.5 06/15/2016 [facility] HEMATOLOGY Monocytes # 0.9 K/CMM 0.0 - 0.8 06/15/2016 [facility] HEMATOLOGY Lymphocytes # 2.0 K/CMM 1.0 - 5.5 06/15/2016 [facility] HEMATOLOGY Basophils # 0.1 K/CMM 0.0 - 0.2 06/15/2016 [facility] HEMATOLOGY Segs-Bands # 8.4 K/CMM 1.5 - 8.1 06/15/2016 [facility] HEMATOLOGY Basophils 0.4 % 0.0 - 1.0 06/15/2016 [facility] Lymphocytes 17.6 % 20.0 - 40.0 06/15/2016 [facility] HEMATOLOGY Segs 73.2 % 45.0 - 75.0 06/15/2016 [facility] HEMATOLOGY Eosinophils 1.1 % 0.0 - 4.0 06/15/2016 [facility] HEMATOLOGY Monocytes 7.7 % 2.0 - 12.0 06/15/2016 [facility] Chest 1view DX Chest 1view DX Study: Frontal chest x-ray History: Chest pain Comments: The patient is rotated. The cardiomediastinal silhouette is normal in size. No pneumonia. No pleural effusions or pneumothorax. Old right rib fractures Impression: No acute cardiopulmonary disease. 06/14/2016 - - Read by: Cecily Hyman MD Dictated Date/time: 06/14/16 19:10 Electronically Signed by: Cecily Hyman MD 06/14/16 19:11 FINAL REPORT [facility] Vital Signs Vital Sign Value Date Comments Source Systolic (mm Hg) 167 06/15/2016 [facility] Diastolic (mm Hg) 98 06/15/2016 [facility] Temperature Oral (F) 98.4 F 06/15/2016 [facility] Heart Rate 71 06/15/2016 [facility] Respitory Rate 18 06/15/2016 [facility] Respitory Rate 14 06/15/2016 [facility] Heart Rate 69 06/15/2016 [facility] Temperature Oral (F) 97.5 F 06/15/2016 [facility] Respitory Rate 18 06/15/2016 [facility] Systolic (mm Hg) 149 06/15/2016 [facility] Diastolic (mm Hg) 89 06/15/2016 [facility] Temperature Oral (F) 98.3 F 06/15/2016 [facility] Heart Rate 72 06/15/2016 [facility] Systolic (mm Hg) 151 06/15/2016 [facility] Diastolic (mm Hg) 78 06/15/2016 [facility] BMI Calculated 29.11 06/15/2016 [facility] Height 167.64 cm 06/15/2016 [facility] Weight 81.818 06/15/2016 [facility] BMI Calculated 29.11 06/15/2016 [facility] Weight 81.818 06/15/2016 [facility] Height 167.64 cm 06/15/2016 [facility] Weight 190 02/19/2014 [facility] Heart Rate 76 02/19/2014 [facility] Diastolic (mm Hg) 64 02/19/2014 [facility] Systolic (mm Hg) 112 02/19/2014 [facility] Weight 190 02/04/2014 [facility] Heart Rate 68 02/04/2014 [facility] Diastolic (mm Hg) 92 02/04/2014 [facility] Systolic (mm Hg) 164 02/04/2014 [facility] Encounters Location Location Details Encounter Type Encounter Number Reason For Visit Attending Provider ADM Date DC Date Status Source Oliva Baptiste MD, PA HIGH BP [id number] 02/04/2014 02/04/2014 Oliva Baptiste MD, PA HIGH BP [id number] 02/04/2014 02/04/2014 Oliva Baptiste MD, PA f/u Echo [id number] 02/19/2014 02/19/2014 Oliva Baptiste Outpatient [id number] TOVA OSORIO 02/17/2015 Active [facility] [id number] [facility] Active [facility] Outpatient [id number] ZENLILLIAN OSORIO 09/01/2015 Active [facility] Inpatient [id number] Alli Kang 06/14/2016 06/15/2016 [facility] Procedures Procedure Code Date Perfomer Comments Source
[2018-03-10 18:08] LABS: BASOPHILS # (AUTO) 0.1 (0.0-0.1); BASOPHILS % 0.6 % (0.0-1.0); EOSINOPHILS # (AUTO) 0.2 (0.0-0.4); EOSINOPHILS % 1.9 % (0.0-6.0); HEMOGLOBIN 15.1 g/dL (12.0-16.0); LYMPHOCYTES # (AUTO) 1.8 (1.0-3.2); LYMPHOCYTES % 20.9 % (18.0-39.1); MEAN CORPUSCULAR HEMOGLOBIN 29.4 pg (28-32); MEAN CORPUSCULAR HGB CONC 32.8 g/dL (31-35); MEAN CORPUSCULAR VOLUME 89.5 fL (81-99); MONOCYTES # (AUTO) 0.7 (0.2-0.8); MONOCYTES % 8.1 % (4.4-11.3); NEUTROPHILS # (AUTO) 5.8 (2.1-6.9); NEUTROPHILS % 67.9 % (38.7-80.0); PLATELET COUNT 220 x10e3/uL (140-360); RED BLOOD COUNT 5.14 x10e6/uL (3.6-5.1); RED CELL DISTRIBUTION WIDTH 12.1 % (11.7-14.4)
[2018-03-10 18:11] LABS: INR 0.89; PARTIAL THROMBOPLASTIN TIME 31.2 seconds (23.8-35.5); PROTHROMBIN TIME 12.9 seconds (11.9-14.5)
[2018-03-10 18:20] LABS: ALBUMIN 3.8 g/dL (3.5-5.0); ALBUMIN/GLOBULIN RATIO 0.8 (0.8-2.0); ANION GAP 14.7 mmol/L (8-16); CALCIUM 9.8 mg/dL (8.4-10.2); CREATININE, SERUM 1.08 mg/dL (0.57-1.11); POTASSIUM 3.7 mmol/L (3.5-5.1)
[2018-03-10 18:27] LABS: CREATINE KINASE MB 1.7 ng/mL (0-5.0)
[2018-03-10 19:05] LABS: MAGNESIUM 2.1 MG/DL (1.3-2.1)
[2018-03-10 19:31] LABS: THYROID STIMULATING HORMONE 3.558 uIU/mL (0.350-4.940)
== END 2018-03-10 19:20 | disposition left against medical advice (07) ==
LOC: ER 17:23
DX: R00.2 Palpitations (principal); I50.9 Heart failure, unspecified; J44.9 Chronic obstructive pulmonary disease, unspecified
CPT/HCPCS: 36415; 80053; 82550; 82553; 83735; 83880; 84443; 84484; 85025; 85610; 85730; 93005

== ENCOUNTER 2018-03-31 18:02 | Observation (INO) | payer MEDICARE ==
[~2018-03-31] VITALS: Ht 170.2 cm; Wt 77.1 kg
[2018-03-31] MEDS ORDERED: METOPROLOL TARTRATE INJ 1 MG/ML VIAL IV ONE (19:00)
[2018-03-31] MEDS ORDERED: CLONIDINE HCL 0.2 MG TAB PO ONE (19:45)
[2018-03-31] MEDS ORDERED: HYDRALAZINE HCL 20 MG/ML VIAL IV PRN (20:00)
[2018-03-31] MEDS ORDERED: METOPROLOL TARTRATE INJ 1 MG/ML VIAL IV PRN (20:00)
[2018-03-31] MEDS ORDERED: ONDANSETRON HCL INJ 2 MG/ML VIAL IV PRN (20:00)
--- OUTSIDE RECORDS SUMMARY | 2018-03-31 20:05 | XMS REPORT | Clinical Summary ---
Author Author [facility] Address Unknown Phone Unavailable Care Team Providers Care Bioinformatics Computer Scientist Name Role Phone PCP Unavailable Allergies No Known Allergies Medications End Date Status Medication Sig Dispensed Refills Start Date Active apixaban (ELIQUIS) 5 mg Take 1 tablet 0 Tab tablet (5 mg total) 7 by mouth 2 (two) times daily. 04/01/2018 Active levothyroxine (SYNTHROID, Take 1 tablet 30 tablet 0 LEVOTHROID) 125 MCG (125 mcg 7 tablet total) by mouth Every morning on an empty stomach. 04/01/2018 Active losartan (COZAAR) 25 MG Take 1 tablet 0 tablet (25 mg total) 7 by mouth daily. 04/01/2018 Active amiodarone (PACERONE) 200 Take 1 tablet 0 MG tablet (200 mg 7 total) by mouth daily. 03/31/2018 Active metoprolol (TOPROL-XL) 50 Take 1 tablet 180 tablet 3 MG 24 hr tablet (50 mg total) 7 by mouth 2 (two) times daily. 03/31/2017 Discontinued metoprolol (TOPROL-XL) 50 Take 1 tablet 0 MG 24 hr tablet (50 mg total) 7 by mouth 2 (two) times daily. 09/29/2017 Discontinued sertraline (ZOLOFT) 100 Take 1 tablet 30 tablet 0 MG tablet (100 mg 7 total) by mouth daily. 03/31/2017 Discontinued amiodarone (PACERONE) 100 Take 1 tablet 0 MG tablet (100 mg 7 total) by mouth every other day. 10/06/2017 levoFLOXacin (LEVAQUIN) Take 1 tablet 7 tablet 0 500 MG tablet (500 mg 8 total) by mouth daily for 7 days. Active Problems Problem Noted Date Chest pain 09/27/2017 Pacemaker 03/28/2017 A-fib 03/28/2017 Encounters Care Team Description Date Type Specialty Marti Zimmerman MD Pacemaker 09/27/2017 Hospital Cardiology - Encounter 09/29/2017 09/27/2017 Orders Only General Internal Medicine Erick Landers MD Atrial fibrillation, unspecified type (HCC) 05/11/2017 Hospital Encounter Erick Landers MD Atrial fibrillation, unspecified type (HCC) (Primary Dx) 05/11/2017 Outside Orders Marti Zimmerman MD Pacemaker (Primary Dx); Atrial fibrillation, unspecified type (HCC) 03/28/2017 Hospital Cardiology - Encounter 03/31/2017 after 03/30/2017 Social History Date Tobacco Use Types Packs/Day Years Used Never Smoker Smokeless Tobacco: Never Used Alcohol Use Drinks/Week oz/Week Comments No Sex Assigned at Date Recorded Not on file Industry Job Start Date Occupation Not on file Not on file Not on file Travel End Travel History Travel Start No recent travel history available. Last Filed Vital Signs Time Taken Vital Sign Reading 09/29/2017 10:00 PM CDT Blood Pressure 180/91 09/29/2017 9:08 PM CDT Pulse 69 09/29/2017 4:52 PM CDT Temperature 36.7 C (98.1 F) 09/29/2017 4:52 PM CDT Respiratory Rate 18 09/29/2017 7:30 PM CDT Oxygen Saturation 96% - Inhaled Oxygen - Concentration 09/27/2017 12:00 PM CDT Weight 79.7 kg (175 lb 11.2 oz) 09/27/2017 12:00 PM CDT Height 170.2 cm (5' 7") 09/27/2017 12:00 PM CDT Body Mass Index 27.52 Plan of Treatment Not on file Implants Device Identifier Shelf Expiration Date Model / Serial / Lot Implanted Type Area Manufactur er 02/09/2019 [id number] / / Lead Pacemkr Capsur Novus 45x1 Pacemaker N/A: Heart [employer]: [id number] - [id number] Lead CARD Implanted: Qty: 1 on 03/29/2017 by RHY:Erick Rodriguez MD E MGT 11/17/2018 [id number] / [id number] / Lead Pacemkr Will Rodriguez 58cm Pacemaker Heart [employer]: [id number] - [id number] Lead CARD Implanted: Qty: 1 on 03/29/2017 by RHY:Erick Rodriguez MD E MGT 08/13/2018 [id number] / [id number] / Pacemaker Ipg Advisa [id number] - Pacemakers N/A: Chest [employer]: [id number] CARD Implanted: Qty: 1 on 03/29/2017 by RHY:Erick Rodriguez MD E MGT Procedures Comments Procedure Name Priority Date/Time Associated Diagnosis REPORT OF PROCEDURE - 10/03/2017 ENDOSCOPY SCAN 12:10 PM CDT ARRYTHMIA IMPLANT REPORT 10/03/2017 - SCAN 12:10 PM CDT ARRYTHMIA IMPLANT REPORT 10/03/2017 - SCAN 12:10 PM CDT RHYTHM STRIP - SCAN 10/03/2017 12:10 PM CDT ECHOCARDIOGRAM REPORT - 09/29/2017 SCAN 7:20 AM CDT URINE CULTURE Routine 09/29/2017 6:22 AM CDT CBC W/PLT COUNT & AUTO Routine 09/29/2017 DIFFERENTIAL 3:45 AM CDT CBC W/PLT COUNT & AUTO Routine 09/29/2017 DIFFERENTIAL 3:45 AM CDT MAGNESIUM Routine 09/29/2017 3:45 AM CDT BASIC METABOLIC PANEL (7) Routine 09/29/2017 3:45 AM CDT HEMOGLOBIN AND HEMATOCRIT Routine 09/28/2017 7:01 PM CDT 2D ECHO W/ DOPPLER CHASE 09/28/2017 (CW/PW/COLOR) 1:52 PM CDT URINALYSIS W/ MICROSCOPIC Routine 09/28/2017 1:11 PM CDT EEG AWAKE AND DROWSY Routine 09/28/2017 10:47 AM CDT CBC W/PLT COUNT & AUTO Routine 09/28/2017 DIFFERENTIAL 6:40 AM CDT CBC W/PLT COUNT & AUTO Routine 09/28/2017 DIFFERENTIAL 6:40 AM CDT MAGNESIUM Routine 09/28/2017 6:40 AM CDT BASIC METABOLIC PANEL (7) Routine 09/28/2017 6:[address] BRAIN WITHOUT IV Routine 09/28/2017 CONTRAST 2:36 AM CDT CREATINE KINASE (CK), Routine 09/27/2017 TOTAL AND MB 6:11 PM CDT TROPONIN I Routine 09/27/2017 6:11 PM CDT ECG 12-LEAD Routine 09/27/2017 1:51 PM CDT CBC W/PLT COUNT & AUTO Routine 09/27/2017 DIFFERENTIAL 1:29 PM CDT CREATINE KINASE (CK), Routine 09/27/2017 TOTAL AND MB 1:29 PM CDT TROPONIN I Routine 09/27/2017 1:29 PM CDT CBC W/PLT COUNT & AUTO Routine 09/27/2017 DIFFERENTIAL 1:29 PM CDT MAGNESIUM Routine 09/27/2017 1:29 PM CDT BASIC METABOLIC PANEL (7) Routine 09/27/2017 1:29 PM CDT ARRYTHMIA IMPLANT REPORT 07/06/2017 - SCAN 1:50 PM MAMMA LOGIST XR CHEST 2 VIEWS Routine 05/11/2017 Atrial fibrillation, 4:20 PM MAMMA LOGIST unspecified type (HCC) RHYTHM STRIP - SCAN 04/11/2017 12:50 PM MAMMA LOGIST ARRYTHMIA IMPLANT REPORT 04/01/2017 - SCAN 1:10 PM MAMMA LOGIST RHYTHM STRIP - SCAN 04/01/2017 1:10 PM MAMMA LOGIST CARDIAC CATH REPORT - 03/31/2017 SCAN 8:10 PM MAMMA LOGIST ECHOCARDIOGRAM REPORT - 03/31/2017 SCAN 7:20 AM MAMMA LOGIST XR CHEST 1 VIEW STAT 03/30/2017 PORTABLE/BEDSIDE 10:40 PM MAMMA LOGIST ECG 12-LEAD STAT 03/30/2017 3:44 PM MAMMA LOGIST TRANSESOPHAGEAL ECHO Routine 03/30/2017 3:37 PM MAMMA LOGIST CARDIOVERSION Routine 03/30/2017 10:10 AM MAMMA LOGIST MAGNESIUM CHASE 03/30/2017 3:46 AM MAMMA LOGIST BASIC METABOLIC PANEL (7) Routine 03/30/2017 3:46 AM MAMMA LOGIST after 03/30/2017 Results * EKG-SCANNED (10/03/2017 12:10 PM CDT) Narrative Performed At * ARRYTHMIA IMPLANT REPORT - SCAN (10/03/2017 12:10 PM CDT) Only the most recent of 4 results within the time period is included. Narrative Performed At * RHYTHM STRIP - SCAN (10/03/2017 12:10 PM CDT) Only the most recent of 3 results within the time period is included. Narrative Performed At * ECHOCARDIOGRAM REPORT - SCAN (09/29/2017 7:20 AM CDT) Narrative Performed At * Urine culture (09/29/2017 6:22 AM CDT) Result ESCHERICHIA COLI (A) [facility] Specimen Urine - Urine, Clean Catch Antibiotic Method Susceptibility Organism Amikacin <=2: Susceptible Escherichia coli Ampicillin + Sulbactam 4: Susceptible Escherichia coli Aztreonam <=1: Susceptible Escherichia coli Cefepime <=1: Susceptible Escherichia coli Cefoxitin <=4: Susceptible Escherichia coli Ceftazidime <=1: Susceptible Escherichia coli Ceftriaxone <=1: Susceptible Escherichia coli Ertapenem <=0.5: Susceptible Escherichia coli Gentamicin <=1: Susceptible Escherichia coli Levofloxacin <=0.12: Susceptible Escherichia coli Meropenem <=0.25: Susceptible Escherichia coli Nitrofurantoin <=16: Susceptible Escherichia coli Piperacillin + Tazobactam <=4: Susceptible Escherichia coli Tetracycline <=1: Susceptible Escherichia coli Tobramycin <=1: Susceptible Escherichia coli Trimethoprim + Sulfamethoxazole <=20: Susceptible Escherichia coli Performing Organization Address City/State/Zipcode Phone Number [facility] [address] [place] [address] MED[facility] * CBC with platelet count + automated diff (09/29/2017 3:45 AM CDT) Only the most recent of 3 results within the time period is included. WBC 7.9 3.5 - 10.5 K/L [facility] RBC 4.71 3.93 - 5.22 M/L [facility] Hemoglobin 13.1 11.2 - 15.7 GM/DL [facility] Hematocrit 42.0 34.1 - 44.9 % [facility] MCV 89.2 79.4 - 94.8 fL [facility] MCH 27.8 25.6 - 32.2 pg [facility] MCHC 31.2 (L) 32.2 - 35.5 GM/DL [facility] RDW 13.1 11.7 - 14.4 % [facility] Platelets 171 150 - 450 K/CU MM [facility] MPV 11.7 9.4 - 12.3 fL [facility] nRBC 0 0 - 0 /100 WBC [facility] % Neutros 56 % [facility] % Lymphs 32 % [facility] % Monos 9 % [facility] % Eos 2 % [facility] % Baso 1 % [facility] # Neutros 4.43 1.56 - 6.13 K/L [facility] # Lymphs 2.50 1.18 - 3.74 K/L [facility] # Monos 0.73 (H) 0.24 - 0.36 K/L [facility] # Eos 0.18 0.04 - 0.36 K/L [facility] # Baso 0.04 0.01 - 0.08 K/L [facility] Immature 0 0 - 1 % [facility] Granulocytes-Relative [facility] Specimen Blood Performing Organization Address City/[facility] [place] [address] [facility] * Magnesium (09/29/2017 3:45 AM CDT) Only the most recent of 4 results within the time period is included. Magnesium 2.2 1.6 - 2.6 mg/dL [facility] Specimen Blood Performing Organization Address City/[facility] Phone Number [address] [address] [facility] * Basic Metabolic Panel (09/29/2017 3:45 AM CDT) Only the most recent of 4 results within the time period is included. Sodium 140 136 - 145 meq/L [facility] Potassium 4.5 3.5 - 5.1 meq/L [facility] Chloride 107 98 - 107 meq/L [facility] CO2 26 22 - 29 meq/L [facility] BUN 14 7 - 21 mg/dL [facility] Creatinine 1.12 0.57 - 1.25 mg/dL [facility] Glucose 92 70 - 105 mg/dL [facility] Calcium 9.1 8.4 - 10.2 mg/dL [facility] EGFR 47Comment: ESTIMATED GFR IS mL/min/1.73 sq m [facility] NOT ACCURATE CREATININE [facility] CLEARANCE IN PREDICTING GLOMERULAR FILTRATION RATE. ESTIMATED GFR IS NOT APPLICABLE FOR DIALYSIS PATIENTS. Specimen Blood Performing Organization Address [facility] Hospitalcode Phone Number [facility] [address] [place] [address] [facility] * Hemoglobin and hematocrit (09/28/2017 7:01 PM CDT) Hemoglobin 13.2 11.2 - 15.7 GM/DL [facility] Hematocrit 40.6 34.1 - 44.9 % [facility] Specimen Blood - Arm, Right Performing Organization Address [facility] Phone Number [facility] [address] [place] [address] [facility] * 2D Echo W/Doppler(CW/PW/Color) (09/28/2017 1:52 PM CDT) Ejection Fraction [facility] ECHO HEARTLAB [facility]OSPITALGoRest SoftwareAD[facility] Narrative Performed At Transthoracic Echocardiography Report (TTE) [facility] ECHO HEARTLAB Demographics [facility] Patient Name Mark ELLIS of Study 09/28/2017 SHWETA [id number] Female Visit Number [id number] Room Number 1060 Number Date of Birth1935Referring Physician Anshul Suarez MD Age82 year(s)Parimutuel Cashier Angelique Garcia [facility] Interpreting Ranjith Gabriel, Physician Procedure Type of Study TTE procedure:2DECHO W DOPPLER(CW/PW/COLOR) (CHASE) Indications:Unexplained Dyspnea. Clinical History HGB 13.5 HCT 41.2 % A-FIB, HTN, HYPOTHYROID, PPM (03/29/17), OBESITY Contrast Medium: Definity. Amount - 3 ml Height: 67 inches Weight: 79.38 kg (175 lbs) BSA: 1.91 m^2 BMI: 27.41 kg/m^2 HR: 72 bpm BP: 190/100 mmHg Summary Regular sinus rhythm during the exam. LV endocardium is adequately visualized with IV ultrasound enhancing agent. The LV endocardium is adequately visualized by adequate apical but limited parasternal views. Unable to measure LV wall thickness. Probable LV hypretrophy. All of the LV segments contract normally . LVEF by Rodriguez's method of disk assessment is normal (>60%) . No significant pericardial effusion is visualized. Aortic root size (SInus of Valsalva diameter) is normal . LA size is normal (16-34 ml/m2) . Unable to estimate peak systolic PA pressure; inadequate TR velocity signal. Signature Findings Rhythm/BPRegular sinus rhythm during the exam. Left Ventricle LV endocardium is adequately visualized with IV ultrasound enhancing agent. The LV endocardium is adequately visualized by adequate apical but limited parasternal views. Unable to measure LV wall thickness. Probable LV hypretrophy. All of the LV segments contract normally . LVEF by Rodriguez's method of disk assessment is normal (>60%) . Left AtriumLA size is normal (16-34 ml/m2) . Right VentricleNormal RV size and systolic function. Right Atrium RA size is normal. Aortic Valve Normal AoV structure and function. Mitral Valve Normal MV structure and function. Tricuspid ValveNormal TV structure and function. Unable to estimate peak systolic PA pressure; inadequate TR velocity signal. Pulmonic Valve Normal PV structure by limited views. AortaAortic root size (SInus of Valsalva diameter) is normal . PericardiumNo significant pericardial effusion is visualized. IVC/SVC/PA/PV/PleuralThe estimated RA pressure by IVC dynamics 0-5mmHg . Chambers/Structures Left Atrium LA Volume: 63.81 ml LA Area: 20.99 cm^2 LA Vol. Index: 33 ml/m^2 Left Ventricle LVIDd: 4.26 cm LVEDV Rodriguez's:71.9 ml LVESV Rodriguez's:22.87 ml LVEF Rodriguez's: 68.2 %LVEDVI: 38 ml/m^2 LVESVI: 12 ml/m^2 LVOT Diameter: 2.01 cm Aorta Ao Root S of Melvi.: 3.31 cm Doppler/Quantitative Measurements LVOT Peak Velocity: 1.05 m/s Peak Gradient: 4.39 mmHg Mean Velocity: 0.66 m/s Mean Gradient: 2.11 mmHg LVOT Diameter: 2.01 cmLVOT VTI: 18.8 cm LVOT Area: 3.17 cm^2LVOT SV:59.62 ml LVOT CO: 4.29 l/min LVOT CI: 2.25 l/min/m^2 Procedure Note Interface, External Ris In - 09/29/2017 6:52 AM CDT Transthoracic Echocardiography Report (TTE) Demographics Patient Name SELIN ELLIS Date of Study 09/28/2017 SHWETA Gender Female Visit Number [id number] Race Room Number 1060 Number Date of 1935 Referring Physician Anshul Suarez MD Age 82 year(s) Parimutuel Cashier Angelique Garcia [facility] Interpreting Ranjith Gabriel, Physician Procedure Type of Study TTE procedure:2DECHO W DOPPLER(CW/PW/COLOR) (CHASE) Indications:Unexplained Dyspnea. Clinical History HGB 13.5 HCT 41.2 % A-FIB, HTN, HYPOTHYROID, PPM (03/29/17), OBESITY Contrast Medium: Definity. Amount - 3 ml Height: 67 inches Weight: 79.38 kg (175 lbs) BSA: 1.91 m^2 BMI: 27.41 kg/m^2 HR: 72 bpm BP: 190/100 mmHg Summary Regular sinus rhythm during the exam. LV endocardium is adequately visualized with IV ultrasound enhancing agent. The LV endocardium is adequately visualized by adequate apical but limited parasternal views. Unable to measure LV wall thickness. Probable LV hypretrophy. All of the LV segments contract normally . LVEF by Rodriguez's method of disk assessment is normal (>60%) . No significant pericardial effusion is visualized. Aortic root size (SInus of Valsalva diameter) is normal . LA size is normal (16-34 ml/m2) . Unable to estimate peak systolic PA pressure; inadequate TR velocity signal. Signature Findings Rhythm/BP Regular sinus rhythm during the exam. Left Ventricle LV endocardium is adequately visualized with IV ultrasound enhancing agent. The LV endocardium is adequately visualized by adequate apical but limited parasternal views. Unable to measure LV wall thickness. Probable LV hypretrophy. All of the LV segments contract normally . LVEF by Rodriguez's method of disk assessment is normal (>60%) . Left Atrium LA size is normal (16-34 ml/m2) . Right Ventricle Normal RV size and systolic function. Right Atrium RA size is normal. Aortic Valve Normal AoV structure and function. Mitral Valve Normal MV structure and function. Tricuspid Valve Normal TV structure and function. Unable to estimate peak systolic PA pressure; inadequate TR velocity signal. Pulmonic Valve Normal PV structure by limited views. Aorta Aortic root size (SInus of Valsalva diameter) is normal . Pericardium No significant pericardial effusion is visualized. IVC/SVC/PA/PV/Pleural The estimated RA pressure by IVC dynamics 0-5mmHg . Chambers/Structures Left Atrium LA Volume: 63.81 ml LA Area: 20.99 cm^2 LA Vol. Index: 33 ml/m^2 Left Ventricle LVIDd: 4.26 cm LVEDV Rodriguez's:71.9 ml LVESV Rodriguez's:22.87 ml LVEF Rodriguez's: 68.2 % LVEDVI: 38 ml/m^2 LVESVI: 12 ml/m^2 LVOT Diameter: 2.01 cm Aorta Ao Root S of Melvi.: 3.31 cm Doppler/Quantitative Measurements LVOT Peak Velocity: 1.05 m/s Peak Gradient: 4.39 mmHg Mean Velocity: 0.66 m/s Mean Gradient: 2.11 mmHg LVOT Diameter: 2.01 cm LVOT VTI: 18.8 cm LVOT Area: 3.17 cm^2 LVOT SV:59.62 ml LVOT CO: 4.29 l/min LVOT CI: 2.25 l/min/m^2 Performing Organization Address City/[facility]/Zipcode Phone Number [facility] HEART[facility] MKCKESSCRISELDA CPACS * Urinalysis w/Microscopic (09/28/2017 1:11 PM CDT) Color, UA [place] [facility] Clarity, UA Cloudy [facility] Specific Sharon, UA 1.017 1.001 - 1.035 [facility] pH, UA 6.0 5.0 - 8.0 [facility] Protein, UA 100 mg/dL (A) Negative [facility] Glucose, UA Negative Negative [facility] Ketones, UA Trace (A) Negative [facility] Bilirubin, UA Negative Negative [facility] Blood, UA Large (A) Negative [facility] Nitrite, UA Positive (A) Negative [facility] Leukocytes, UA Large (A) Negative [facility] Urobilinogen, UA 2.0 (H) 0.2 - 1.0 mg/dL [facility] RBC, UA >182 /HPF [facility] WBC, UA >182 /HPF [facility] Bacteria, UA Many [facility] Mucus Occasional [facility] Squam Epithel, UA 6 /HPF [facility] Crystals, Urine Occasional [facility] Specimen Source [facility] Specimen Urine Performing Organization Address City/[facility]/Zipcode Phone Number [facility] [address] [place] [address] MEDICAL CENTER * EEG AWAKE AND DROWSY (09/28/2017 10:47 AM CDT) Narrative Performed At EEG REPORT: Selin Ellis GE RIS [facility] Date of EE Date of report: EEG start time: 1026 EEG end time: 104 EEG#: [id number] ICD Code: #: R55: Syncope and Collapse (ICD 9: 780.2) CPT Code: #: 63491: 01. EEG awake and drowsy; 20-40 min PROCEDURE: EEG HISTORY: 82 year old woman with 2 episodes of syncope. TECHNICAL SUMMARY: This is a digital EEG performed using disc electrodes placed according to the International 10-20 system of electrode placement.Scalp to scalp and scalp to ear montages were used.No sedation was given. DESCRIPTION OF RECORD: In the best awake state, a Posterior Dominant Rhythm (PDR) was present at 8.5-9 cycles/ second. Occasional bursts of moderate amplitude focal slowing of 2 cycles/second were seen over the right frontal region (Fp2/F4/F8). No epileptiform discharges were noted. No clinical or electrographic seizures were noted. SLEEP The patient was drowsy during the recording. HYPERVENTILATION: Hyperventilation was not performed. PHOTIC STIMULATION: Photic stimulation did not result in a driving response. EKG: The heart rate was 60/ min. IMPRESSION: This was an abnormal EEG due to occasional focal slowing over the right frontal region. There were no seizures or epileptiform discharges seen. COMMENT: Focal slowing could indicate a structural or functional abnormality in the underlying brain. Common causes include tumor, infection, stroke or trauma. This can also be seen in the immediate post-ictal period. Clinical and/ or radiological correlation is suggested if indicated. Clinical Fellow: Ofelia Amaral Neurophysiologist: Carmen Multani Procedure Note Interface, External Ris In - 09/28/2017 12:16 PM CDT EEG REPORT: Selin Ellis [facility] Date of EE Date of report: EEG start time: 102 EEG end time: 1046 EEG #: [id number] ICD Code: #: R55: Syncope and Collapse (ICD 9: 780.2) CPT Code: #: 48265: 01. EEG awake and drowsy; 20-40 min PROCEDURE: EEG HISTORY: 82 year old woman with 2 episodes of syncope. TECHNICAL SUMMARY: This is a digital EEG performed using disc electrodes placed according to the International 10-20 system of electrode placement. Scalp to scalp and scalp to ear montages were used. No sedation was given. DESCRIPTION OF RECORD: In the best awake state, a Posterior Dominant Rhythm (PDR) was present at 8.5-9 cycles/ second. Occasional bursts of moderate amplitude focal slowing of 2 cycles/second were seen over the right frontal region (Fp2/F4/F8). No epileptiform discharges were noted. No clinical or electrographic seizures were noted. SLEEP The patient was drowsy during the recording. HYPERVENTILATION: Hyperventilation was not performed. PHOTIC STIMULATION: Photic stimulation did not result in a driving response. EKG: The heart rate was 60/ min. IMPRESSION: This was an abnormal EEG due to occasional focal slowing over the right frontal region. There were no seizures or epileptiform discharges seen. COMMENT: Focal slowing could indicate a structural or functional abnormality in the underlying brain. Common causes include tumor, infection, stroke or trauma. This can also be seen in the immediate post-ictal period. Clinical and/ or radiological correlation is suggested if indicated. Clinical Fellow: Ofelia Amaral Neurophysiologist: Carmen Multani Performing Organization Address City/State/Zipcode Phone Number [facility] * CT brain without IV contrast (09/28/2017 2:36 AM CDT) Narrative Performed At FINAL REPORT [facility] CT head without contrast 09/28/2017 7:26 AM CLINICAL HISTORY: Memory loss TECHNIQUE: Axial noncontrast CT images through the head were obtained. This examination was performed according to our departmental dose optimization program, which includes automated exposure control, adjustment of the mA and/or kV according to patient size, and/or use of iterated reconstruction technique. COMPARISON: None available FINDINGS: There is no hemorrhage, extra-axial collection, mass, hydrocephalus, or midline shift. There is relatively extensive microvascular ischemia in the supratentorial white matter and madelin. 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 There is generalized parenchymal volume loss. The visualized paranasal sinuses and mastoid air cells are well aerated. The skull is intact. IMPRESSION: No intracranial hemorrhage or mass effect. Chronic appearing ischemic and involutional changes. If concern for acute pathology persists, further evaluation with MRI is recommended. Signed: Ramón Pinto MD Report Verified Date/Time:09/28/2017 07:27:59 Reading Location: [address] Neuro Reading Room Procedure Note Interface, External Ris In - 09/28/2017 7:30 AM CDT FINAL REPORT CT head without contrast 09/28/2017 7:26 AM CLINICAL HISTORY: Memory loss TECHNIQUE: Axial noncontrast CT images through the head were obtained. This examination was performed according to our departmental dose optimization program, which includes automated exposure control, adjustment of the mA and/or kV according to patient size, and/or use of iterated reconstruction technique. COMPARISON: None available FINDINGS: There is no hemorrhage, extra-axial collection, mass, hydrocephalus, or midline shift. There is relatively extensive microvascular ischemia in the supratentorial white matter and madelin. 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 There is generalized parenchymal volume loss. The visualized paranasal sinuses and mastoid air cells are well aerated. The skull is intact. IMPRESSION: No intracranial hemorrhage or mass effect. Chronic appearing ischemic and involutional changes. If concern for acute pathology persists, further evaluation with MRI is recommended. Signed: Ramón Pinto MD Report Verified Date/Time: 09/28/2017 07:27:59 Reading Location: [address] Neuro Reading Room Performing Organization Address City/State/Zipcode Phone Number GE RIS * Troponin I (09/27/2017 6:11 PM CDT) Only the most recent of 2 results within the time period is included. Troponin I 0.03 0.00 - 0.03 ng/mL [facility] Specimen Blood Narrative Performed At Troponin I (TnI) levels must be interpreted in the context of the presenting [facility] symptoms and the clinical findings. Elevated TnI levels indicate myocardial [facility] damage, but are not specific for ischemic heart disease. Elevated TnI levels are seen in patients with other cardiac conditions (including myocarditis and congestive heart failure), and slight TnI elevations occur in patients with other conditions, including sepsis, renal failure, acidosis, acute neurological disease, and persistent tachyarrhythmia. Performing Organization Address City/State/Zipcode Phone Number [facility] [address] [place] [address] [facility] * Creatine Kinase (CK), Total and MB (09/27/2017 6:11 PM CDT) Only the most recent of 2 results within the time period is included. Total CK 40 29 - 200 U/L [facility] CK-MB 2.7 0.0 - 6.6 ng/mL [facility] MB Relative Index 6.8 % [facility] Specimen Blood Narrative Performed At CK-MB Reference Range: [facility] <6.7Normal [facility] 6.7-10.0Borderline >10.0 Abnormal Performing Organization Address City/[facility] Phone Number [facility] [address] [place] [address] [facility] * ECG 12 lead (09/27/2017 1:51 PM CDT) Only the most recent of 2 results within the time period is included. Narrative Performed At Ventricular Rate 70 BPM GE MUSE Atrial Rate 70 BPM P-R Interval 190 ms QRS Duration 72 ms Q-T Interval 436 ms QTC Calculation(Bazett) 470 ms P [place] 92 degrees R [place] 47 degrees T [place] 220 degrees Electronic atrial pacemaker Left ventricular hypertrophy with repolarization abnormality Abnormal ECG When compared with ECG of 30-MAR-2017 15:44, Atrial paced rhythm has replaced atypical atrial flutter Reconfirmed by Chapis HEREDIA, LUANA ([id number]) on 09/29/2017 8:06:10 AM Procedure Note Interface, External Ris In - 09/29/2017 8:06 AM CDT Ventricular Rate 70 BPM Atrial Rate 70 BPM P-R Interval 190 ms QRS Duration 72 ms Q-T Interval 436 ms QTC Calculation(Bazett) 470 ms P [place] 92 degrees R [place] 47 degrees T [place] 220 degrees Electronic atrial pacemaker Left ventricular hypertrophy with repolarization abnormality Abnormal ECG When compared with ECG of 30-MAR-2017 15:44, Atrial paced rhythm has replaced atypical atrial flutter Reconfirmed by Chapis HEREDIA BASANT ([id number]) on 09/29/2017 8:06:10 AM Performing Organization Address City/State/Zipcode Phone Number [facility] * XR Chest 2 Views (05/11/2017 4:20 PM [facility]AMMA LOGIST) Narrative Performed At FINAL REPORT GE [facility]inda TECHNIQUE: Frontal and lateral views of the [...] IMPRESSION: No acute cardiopulmonary abnormalities. Signed: Audrey Mullen MD Report Verified Date/Time:05/11/2017 16:36:59 Reading Location: [address] Radiology Reading Room Procedure Note Interface, External Ris In - 05/11/2017 4:39 PM MAMMA LOGIST FINAL REPORT TECHNIQUE: Frontal and lateral views [...] IMPRESSION: No acute cardiopulmonary abnormalities. Signed: Audrey Mullen MD Report Verified Date/Time: 05/11/2017 16:36:59 Reading Location: [address] Radiology Reading Room Performing Organization Address City/State/Zipcode Phone Number GE RIS * CARDIAC CATH REPORT - SCAN (03/31/2017 8:10 PM MAMMA LOGIST) Narrative Performed At * ECHOCARDIOGRAM REPORT - SCAN (03/31/2017 7:20 AM MAMMA LOGIST) Narrative Performed At * XR chest 1 view portable / bedside (03/30/2017 10:40 PM MAMMA LOGIST) Narrative Performed At FINAL REPORT GE RIS History: Pacemaker placement. Comparison: None. Findings: A [...] is no acute bony abnormality. Signed: Xavier Vallejo MD Report Verified Date/Time:03/30/2017 22:44:16 Reading Location: [address] [place] Reading Room Procedure Note Interface, External Ris In - 03/30/2017 10:46 PM MAMMA LOGIST FINAL REPORT History: Pacemaker placement. Comparison: None. [...] is no acute bony abnormality. Signed: Xavier Vallejo MD Report Verified Date/Time: 03/30/2017 22:44:16 Reading Location: [address] Reading Room Performing Organization Address City/State/Zipcode Phone Number GE RIS * Transesophageal echo (03/30/2017 3:37 PM MAMMA LOGIST) Ejection Fraction [facility] CPACS Narrative Performed At Transesophageal Echocardiography Report (BETSY) [facility] Demographics MKCKESSON CPACS Patient Name Mark ELLIS of Study 03/30/2017 SHWETA [id number] Female Visit Number [id number] Room Number [id number] Number Date of Birth1935Referring Physician Anshul Suarez MD Age82 year(s)Parimutuel Cashier Ida Lombardo Interpreting Olimpia Turner Physician MD Fellow EDDIE Schumacher Procedure Type [...] External Ris In - 03/31/2017 6:53 AM MAMMA LOGIST Transesophageal Echocardiography Report (BETSY) Demographics Patient Name SELIN ELLIS Date of Study 03/30/2017 SHWETA Gender Female Visit Number [id number] Race Unknown Room Number 1450 Number Date of 1935 Referring Physician Anshul Suarez MD Age 82 year(s) Parimutuel Cashier Ida Lombardo Interpreting Olimpia Turner, Physician Fellow EDDIE Schumacher Procedure Type of [...] . IVC/SVC/PA/PV/Pleural The pulmonary veins appear normal. Performing Organization Address City/State/Zipcode Phone Number [facility] after 03/30/2017 Insurance Payer Benefit Subscriber ID Type Phone Address Plan / Group HU[employer]NA - MEDICARE MGD HUMANA xxxxxxxxx [facility] MEDICARE Contracted ADV Advance Directives For more information, please contact: [facility] [address] [place] [address] Date Inactivated Comments Code Status Date Activated 09/30/2017 12:07 AM Full Code 09/27/2017 11:37 AM This code status was determined by: Patient 03/31/2017 2:24 PM Full Code 03/31/2017 9:20 AM This code status was determined by: Patient 03/30/2017 5:24 PM Full Code 03/30/2017 4:02 PM This code status was determined by: Patient
--- NOTE | 2018-03-31 21:17 | Diagnostic Imaging Report ---
Exam: AP view of the chest Indication: Syncope Comparison: PA and lateral view of the chest September 20, 2017 Please note due to xray time stamp error, the date on the x-ray is listed as May 02, 2000; however the date of the exam performed is March 31, 2018 Findings: A loop recorder projects over the left chest. Stable position of left approach dual lead pacemaker. No consolidations. Mild vascular congestion, similar to prior exam. The heart is within normal size limits. No acute bone findings. Impression: No acute thoracic abnormality. Signed by: Dr. Bhumi Baxter M.D. on 03/31/2018 9:14 PM
[2018-04-01] MEDS ORDERED: NON-FORMULARY MEDICATION ([Eliquis] 5 MG) PO SCH (09:00)
[2018-04-01] MEDS ORDERED: APIXABAN 5 MG TABLET PO SCH (09:00)
[2018-04-01] MEDS ORDERED: LOSARTAN POTASSIUM 100 MG TAB PO SCH (09:00)
== END 2018-03-31 20:45 | disposition left against medical advice (07) ==
LOC: FSED 18:02 → ERHOLD 19:52
PROVIDERS: ADMIT Internal Medicine; ATTEND Internal Medicine
DX: R07.9 Chest pain, unspecified (principal); I48.2 Chronic atrial fibrillation; I10 Essential (primary) hypertension; Z79.01 Long term (current) use of anticoagulants; Z95.0 Presence of cardiac pacemaker
CPT/HCPCS: 71045; 80053; 82553; 84484; 85025; 93005; 99284; G0378; J2405